=== PATIENT | female | born 1940 | race Caucasian/White ===

== ENCOUNTER 2019-01-21 12:12 | Inpatient (IN) ==
[2019-01-21 12:41] LABS: Basophils # (auto) 0.05 K/uL (0-0.2); Basophils % (auto) 0.6 %; Eosinophils # (auto) 0.31 K/uL (0-0.5); Eosinophils % (auto) 3.8 %; Hematocrit (blood only) 47.9 % (37-47); Hemoglobin 16.8 g/dL (12.0-16.0); Immature Granulocytes # (auto) 0.04 K/uL (0.00-0.02); Immature Granulocytes % (auto) 0.5 %; Lymphocytes # (auto) 2.28 K/uL (1.2-3.4); Lymphocytes % (auto) 27.7 %; Mean Corpuscular Hemoglobin 32.4 pg (25-34); Mean Corpuscular Hgb Conc 35.1 g/dL (32-36); Mean Corpuscular Volume 92.5 fL (80-100); Mean Platelet Volume 9.6 fL (7.4-10.4); Monocytes # (auto) 0.67 K/uL (0.11-0.59); Monocytes % (auto) 8.1 %; Neutrophils # (auto) 4.89 K/uL (1.4-6.5); Neutrophils % (auto) 59.3 %; Platelet Count 219 K/uL (130-400); RDW Coefficient of Variation 13.4 % (11.5-14.5); RDW Standard Deviation 45.2 fL (36.4-46.3); Red Blood Count 5.18 M/uL (4.2-5.4); White Blood Count 8.24 K/uL (4.8-10.8)
[2019-01-21] MEDS ORDERED: dilTIAZem HCl 5 MG/ML 5 ML VIAL IV STA (12:41)
[2019-01-21 12:50] LABS: Prothrombin Time 10.4 Seconds (9.0-12.0)
[2019-01-21 12:58] LABS: Alanine Aminotransferase 27 U/L (12-78); Albumin Level 4.1 gm/dl (3.4-5.0); Aspartate Aminotransferase 19 U/L (15-37); BUN Creatinine Ratio 19.6 (10-20); Blood Urea Nitrogen 18 mg/dl (7-18); Calcium 9.5 mg/dl (8.5-10.1); Carbon Dioxide 26 mmol/L (21-32); Chloride 108 mmol/L (98-107); Creatinine Clr Calc Pharmacy 52.2 ml/min; Est GFR (African American) 66.9; Est GFR (Non-African American) 57.7; Glucose 106 mg/dl (70-99); Magnesium 2.1 mg/dl (1.8-2.4); Potassium 3.7 mmol/L (3.5-5.1); Sodium 142 mmol/L (136-145)
[2019-01-21] MEDS: dilTIAZem HCL 125 MG in DEXTROSE 5% 100 ML IV SCH ×2 (13:05→23:38)
[2019-01-21 13:09] LABS: Albumin Globulin Ratio 1.1 (0.9-2); Alkaline Phosphatase 93 U/L (45-117); Bilirubin,Total 0.6 mg/dl (0.2-1); Globulin 3.7 gm/dl (2.5-4.0); Total Protein 7.8 gm/dl (6.4-8.2); Troponin I < 0.015 ng/ml (0-0.045)
--- NOTE | 2019-01-21 13:28 | XRay Report ---
XR chest 1V portable CLINICAL HISTORY: Fall. Atrial fibrillation. COMPARISON STUDY: No previous studies for comparison. FINDINGS: Lung volumes are normal. Lungs are clear. There is no pneumothorax or pleural effusion. The heart is mildly enlarged Mediastinal contours are normal. There is no evidence for pulmonary edema. Right axillary surgical clips are present. IMPRESSION: No acute cardiopulmonary findings. Electronically signed by: Alexander Helm M.D. 01/21/2019 1:27 PM
--- NOTE | 2019-01-21 14:12 | CT Scan Report ---
CT head/brain wo con CLINICAL HISTORY: 78 years-old Female with fall. Acute head injury status post fall TECHNIQUE: Multiple axial CT images of the head were obtained without contrast. A dose lowering tech nique was utilized adhering to the principles of ALARA. CT DOSE: 537.48 mGy.cm COMPARISON: None. FINDINGS: No acute intracranial hemorrhage, midline shift, intracranial mass, hydrocephalus, territorial ischem ia or abnormal extra-axial collection. Age-related involutional changes. Cerebral vascular calcificat ions are noted. Mild patchy white matter hypodensities suggest chronic microvascular ischemic disease . The calvarium is intact. Polypoid mucosal thickening of the nasal turbinates, maxillary sinuses and left sphenoid sinus with mild to moderate mucosal thickening of the ethmoid air cells. Mastoid air ce lls are clear. Prior bilateral cataract repair. IMPRESSION: No acute intracranial abnormality or calvarial fracture. The above report was generated using voice recognition software. It may contain grammatical, syntax o r spelling errors. Electronically signed by: Chintan Manriquez M.D. 01/21/2019 2:11 PM
[2019-01-21] MEDS ORDERED: Heparin IV Standard *NO* Bolus IV ONE (15:41)
--- NOTE | 2019-01-21 15:41 | History & Physical Report ---
Date of Service January 21, 2019 Assessment & Plan (1) New onset atrial fibrillation: PCP visit last week was not noted for irregular HR Asx from this Trop neg x1, serials pending ECHO pending Dilt drip, can likely convert to PO if well controlled CHADS-VASC score is 3. Pt would be an excellent candidate for xarelto or eliquis if ECHO does not reveal valvular issue, will not start coumadin at this time Heparin drip, no bolus for now given ongoing elevated HR Overnight pulse ox to evaluate for AFSHIN CXR neg for acute (2) Sinusitis: Outpt tx To finish abx tomorrow (3) Altered behavior: CT head neg for acute MRI pending Pt is now back to usual per daughter (4) DVT prophylaxis: SCDs, Heparin for DVT proph History of Present Illness Primary Care Provider: Chris Puente MD 78 y/o F who was brought to the ED s/p fall. Pt was at work when this occurred. Pt has a desk set up with multiple areas that she rolls around between in her chair. She was attempting to sit down when she missed the chair as it was further away from her than she thought. She denies any LOC prior to the fall. She did hit her head. She remembers hearing the woman who works across from her asking if she fell. She states she was having a usual day prior to this. Pt denies fever, SOB, chest pain, abd pain, n/v/c/d, LE pain or swelling. No palpitations. No headache, vision changes. She does note a slight ache in the muscles in the back of her head s/p fall. She ate breakfast without issue. Pt saw her PCP last week for lynch on her fingers and possible sinus issue. She was dx with sinusitis and started on an abx. She states her VS were checked and nothing was noted as abn other than a slightly high BP that pt states is c/w her usual BP in the office. Daughter states that when pt called her from work she seemed very hyper and her speech was different than usual. No slurring, just very high pitched and her speech pattern seemed unusual. She was giggling in a way that her daughter states she has never heard. Pt states that this was due to her being very "humilated" because all of her co-workers were standing around her and the fashion supervisor came with a bed to take her out of the office. She states she was very embarrassed and worried about coming to the hospital. Daughter states that she seems more herself now. Pt states when she gets home from work she has dinner and is very bored, so she frequently falls asleep in a chair. Then she wakes around 3a and goes to bed. Pt works in [place] for a [employer] and sits at a computer all day. She wears polarizing sunglasses because otherwise her eyes become very screen fatigued. She does not wake up gasping for air. Daughter states that she does not live with pt, but has noted to her to snore when they are sleeping in close proximity. Home Medications Home Medications Medication Instructions Recorded Confirmed Type cefuroxime axetil 500 mg PO BID 01/21/19 01/21/19 History Past Med/Surg History Medical History No significant past medical history Surgical History History of cataract surgery Family History Father Irregular heart beat Mother Stroke Other Family history non-contributory Social History Preferred Language: Kyrgyz marital status: Current Living Situation: Alone current occupational status: retired Feels Safe at Home: Yes Smoking Status: Never smoker Hx Alcohol Use: Yes (a beer 2 times a week) Hx Substance Use: No Review of Systems Review of Systems: Pertinent positives and negatives reviewed in HPI--all others negative Physical Exam Constitutional: WD/WN, vitals as above Eyes: normal visual ponce by confrontation and + anicteric sclerae Neck: normal visual inspection and trachea midline Respiratory: normal respiratory effort, lungs clear to auscultation Cardiovascular: Rate/Rhythm: + irregularly irregular Gastrointestinal (Abdomen): Inspection/Auscultation: abdomen not distended Percussion/Palpation: abdomen soft; abdomen nontender Musculoskeletal: Head/Neck/Chest: normocephalic and head atraumatic negative for edema, peripheral pulses intact Skin: no rashes, warm and dry Neurologic: awake; not confused Speech / Cognition: normal speech Psychiatric: A+Ox3, euthymic affect Results & Data Vital Signs (Past 12 Hours) Vital Signs Temp Pulse Resp BP Pulse Ox 01/21/19 14:11 105 H 20 148/94 H 97 01/21/19 13:30 91 H 23 151/98 H 95 01/21/19 13:15 121 H 27 H 142/88 H 95 01/21/19 12:24 36.8 C 123 H 16 161/84 H 96 01/21/19 12:19 115 H 20 161/84 H 97 Diagnostic Findings CXR: neg for acute CT head: neg for acute ECG Additional Comments: Afib RVR Code Status & VTE Plan Code Status Full cardiac code. Declines intubation at any time. Daughter is present and agrees. VTE Prophylaxis Plan VTE Prophylaxis will be ordered: Yes PG Care Time/CCT Total # of Minutes Spent Total Time Spent with Patient: Total time spent is greater than 50% in coordination of care (as documented) at patient's floor/unit and/or counseling patient:
[2019-01-21] MEDS: HEPARIN SODIUM/DEXTROSE 25,000 UNITS/500 ML BAG IV SCH (17:55)
--- NOTE | 2019-01-21 18:17 | Emergency Department Note ---
Entered by Dajuan Ortega acting as a scribe for Tato Tobar M.D. History of Present Illness General Chief complaint: Cardiac Assessment Source: patient History of Present Illness Provider complaint: Syncope Onset (ago): hour(s) (Just prior to arrival) Location: head Pain Consistency: + other (Episodic) Relieved By: + none Exacerbated By: + none Associated symptoms: + cough; no chest pain, no headaches, no nausea/vomiting and no shortness of breath The patient is a 78 year old female who presents to the Emergency Room after having a syncopal episode while at work earlier today just prior to arrival. The patient states she slid off of her desk chair and hit the posterior aspect of her head on her desk. The patient states she did not feel dizzy before the episode and does not remember syncopizing. The patient's daughter states that the patient is acting and sounding different than she normally does, but the patient notes it is because she is nervous and embarrassed. The patient adds that she has a sinus infection and cough that is being treated with an antibiotic. She states she has 2 days left of the antibiotic and has not taken any steroids. The patient denies any headache, chest pain, shortness of breath, or extremity pain as well as any history of atrial fibrillation. Home Medications Home Medications Medication Instructions Recorded Confirmed Type cefuroxime axetil 500 mg PO BID 01/21/19 01/21/19 History Past Med/Surg History Medical History No significant past medical history Surgical History History of cataract surgery Family History Father Irregular heart beat Mother Stroke Other Family history non-contributory Social History Preferred Language: French Communication Ability: Effective Beliefs That Will Affect Care: None marital status: Current Living Situation: Alone current occupational status: retired Feels Safe at Home: Yes Smoking Status: Former smoker Hx Alcohol Use: Yes (Occasional) Hx Substance Use: No Review of Systems See HPI for pertinent positives & negatives. and A total of 10 systems reviewed and were otherwise negative Physical Exam Vital Signs Vital Signs - 24 hr 01/21/19 12:19 01/21/19 12:24 01/21/19 13:15 Temperature 36.8 C Temperature Source Oral Sepsis Recent Fever Within 48 Hours No Sepsis New/Unexplained Change in Mental Status No Sepsis Action Taken by Nursing No Action Required Pulse Rate 115 H 123 H 121 H Pulse Rate from SpO2 Sensor 113 H 106 H Pulse Rhythm Irregular Pulse Strength Normal Respiratory Rate 20 16 27 H Respiratory Effort / Characteristics Non-Labored Spontaneous Respiratory Depth Normal Respiratory Pattern Regular Blood Pressure 161/84 H 161/84 H 142/88 H Blood Pressure Mean 109 109 106 Blood Pressure Position Sitting Pulse Oximetry 97 96 95 Oxygen Delivery Method Room Air 01/21/19 13:30 01/21/19 14:11 Temperature Temperature Source Sepsis Recent Fever Within 48 Hours Sepsis New/Unexplained Change in Mental Status Sepsis Action Taken by Nursing Pulse Rate 91 H 105 H Pulse Rate from SpO2 Sensor 104 H 105 H Pulse Rhythm Pulse Strength Respiratory Rate 23 20 Respiratory Effort / Characteristics Respiratory Depth Respiratory Pattern Blood Pressure 151/98 H 148/94 H Blood Pressure Mean 115 112 Blood Pressure Position Pulse Oximetry 95 97 Oxygen Delivery Method GENERAL: Awake, alert, well-appearing, in no distress HENT: Normocephalic, atraumatic. Oropharynx unremarkable. EYES: Normal conjunctiva. Sclera non-icteric. PERRL. NECK: Supple. No nuchal rigidity. RESPIRATORY: Clear to auscultation. No wheezes. Normal respiratory effort. CARDIAC: Tachycardic rate. Irregularly irregular rhythm. Extremities warm and well perfused. GI: Soft, non-distended. No tenderness to palpation. No rebound or guarding. No masses. RECTAL: Deferred. MUSCULOSKELETAL: Atraumatic. Chest examination reveals no tenderness. LOWER EXTREMITIES: Calves are equal size bilaterally and non-tender. No edema NEURO: Normal sensorium. No sensory or motor deficits noted. No facial droop. No slurred speech. GCS 15. Slightly tangential and giddy. SKIN: Warm and dry. No rash or jaundice noted. Course 1228: Past medical records reviewed. The patient was evaluated in room B04B, and a complete history and physical examination were performed. 1420: I reevaluated the patient and updated her on results. We discussed the treatment plan and she is agreeable to stay for further evaluation. 1441: I spoke to Dr. Menendez [facility] Hospitalist about the patient's case. She is going to accept the patient for further evaluation. Consultations Consultation #1: I spoke to Dr. Shon Crawley [facility] Hospitalist about the patient's case. She is going to accept the patient for further evaluation. Time: 14:41 Administered Medications Diltiazem HCl 125 mg/ Dextrose 125 mls @ 5 mls/hr IV .Q24H BECKIE; Protocol Stop: 02/20/19 12:44 Last Titration: 01/21/19 17:57 Dose: 5 mg/hr, 5 mls/hr Documented by: [id number] Cosigned by: [id number] Admin: 01/21/19 13:05 Dose: 5 mg/hr, 5 mls/hr Documented by: [id number] Cosigned by: [id number] Heparin Sodium/Dextrose (Heparin Sodium/Dextrose) 25,000 units in 500 mls @ 24 mls/hr IV .[id number] BECKIE; Protocol Stop: 02/20/19 15:44 Last Admin: 01/21/19 17:55 Dose: 1,200 units/hr, 24 mls/hr Documented by: [id number] Cosigned by: [id number] Discontinued Medications Diltiazem HCl (Cardizem) 10 mg IV NOW STA Stop: 01/21/19 12:42 Last Admin: 01/21/19 13:05 Dose: 10 mg Documented by: [id number] Cosigned by: [id number] Heparin Sodium/Dextrose () 1 ea IV ONE ONE; Protocol Stop: 01/21/19 15:42 Last Admin: 01/21/19 17:55 Dose: 1 ea Documented by: [id number] Medical Decision Making Differential Diagnosis Differential diagnosis includes etiologies such as vasovagal event, infection, hypoglycemia, electrolyte abnormalities, cardiac sources, intracerebral event, toxicologic, neurologic, as well as others were entertained. Medical Records Attestation: I reviewed the patient's medical records. Home Medications Current Medication List: was personally reviewed by me Laboratory Data Attestation: I reviewed the patient's lab results. Result diagrams: 01/21/19 12:06 01/21/19 12:06 Lab Results 01/21/19 01/21/19 01/21/19 Range/Units 12:06 12:06 12:06 WBC 8.24 (4.8-10.8) K/uL RBC 5.18 (4.2-5.4) M/uL Hgb 16.8 H (12.0-16.0) g/dL Hct 47.9 H (37-47) % MCV 92.5 (80-100) fL MCH 32.4 (25-34) pg MCHC 35.1 (32-36) g/dL RDW Std Deviation 45.2 (36.4-46.3) fL RDW Coeff of Kaylee 13.4 (11.5-14.5) % Plt Count 219 (130-400) K/uL MPV 9.6 (7.4-10.4) fL Immature Gran % (Auto) 0.5 % Neut % (Auto) 59.3 % Lymph % (Auto) 27.7 % Lyon % (Auto) 8.1 % Eos % (Auto) 3.8 % Baso % (Auto) 0.6 % Immature Gran # (Auto) 0.04 H (0.00-0.02) K/uL Neut # (Auto) 4.89 (1.4-6.5) K/uL Lymph # (Auto) 2.28 (1.2-3.4) K/uL Lyon # (Auto) 0.67 H (0.11-0.59) K/uL Eos # (Auto) 0.31 (0-0.5) K/uL Baso # (Auto) 0.05 (0-0.2) K/uL PT 10.4 (9.0-12.0) Seconds INR 1.0 (0.9-1.1) Sodium 142 (136-145) mmol/L Potassium 3.7 (3.5-5.1) mmol/L Chloride 108 H (98-107) mmol/L Carbon Dioxide 26 (21-32) mmol/L Anion Gap 7.0 (3-11) BUN 18 (7-18) mg/dl Creatinine 0.94 (0.6-1.2) mg/dl Est Cr Clr Drug Dosing 52.2 ml/min Est GFR ( Amer) 66.9 Est GFR (Non-Af Amer) 57.7 BUN/Creatinine Ratio 19.6 (10-20) Glucose 106 H (70-99) mg/dl Calcium 9.5 (8.5-10.1) mg/dl Magnesium 2.1 (1.8-2.4) mg/dl Total Bilirubin 0.6 (0.2-1) mg/dl AST 19 (15-37) U/L ALT 27 (12-78) U/L Alkaline Phosphatase 93 (45-117) U/L Troponin I < 0.015 (0-0.045) ng/ml Total Protein 7.8 (6.4-8.2) gm/dl Albumin 4.1 (3.4-5.0) gm/dl Globulin 3.7 (2.5-4.0) gm/dl Albumin/Globulin Ratio 1.1 (0.9-2) TSH 1.800 (0.300-4.500) uIu/ml Imaging Data Radiologist's Impression: Radiology results as stated below per my review and the radiologist's interpretation: XR chest 1V portable CLINICAL HISTORY: Fall. Atrial fibrillation. COMPARISON STUDY: No previous studies for comparison. FINDINGS: Lung volumes are normal. Lungs are clear. There is no pneumothorax or pleural effusion. The heart is mildly enlarged Mediastinal contours are normal. There is no evidence for pulmonary edema. Right axillary surgical clips are present. IMPRESSION: No acute cardiopulmonary findings. Electronically signed by: Alexander Helm M.D. 01/21/2019 1:[address] head/brain wo con CLINICAL HISTORY: 78 years-old Female with fall. Acute head injury status post fall TECHNIQUE: Multiple axial CT images of the head were obtained without contrast. A dose lowering technique was utilized adhering to the principles of ALARA. CT DOSE: 537.48 mGy.cm COMPARISON: None. FINDINGS: No acute intracranial hemorrhage, midline shift, intracranial mass, hydrocephalus, territorial ischemia or abnormal extra-axial collection. Age- related involutional changes. Cerebral vascular calcifications are noted. Mild patchy white matter hypodensities suggest chronic microvascular ischemic disease. The calvarium is intact. Polypoid mucosal thickening of the nasal turbinates, maxillary sinuses and left sphenoid sinus with mild to moderate mucosal thickening of the ethmoid air cells. Mastoid air cells are clear. Prior bilatera l cataract repair. IMPRESSION: No acute intracranial abnormality or calvarial fracture. The above report was generated using voice recognition software. It may contain grammatical, syntax or spelling errors. Electronically signed by: Chintan Manriquez M.D. 01/21/2019 2:11 PM ECG Data Attestation: I personally reviewed and interpreted this ECG as follows: Indication: syncope Rate (beats per minute): 125 Rhythm: atrial fibrillation (with RVR) Findings: + other (Inferior T wave changes ); no ST depression and no ST elevation Blood Pressure Blood Pressure Findings: Elevated blood pressure Blood Pressure Disposition: further management by hospitalist Head Trauma GCS Score: 15 MDM Narrative Patient is a 78-year-old female presenting to the emergency department today with a complaint of some palpitations. Patient without significant medical history. Presents today after a fall at work. States that she just lost her balance and fell backwards striking her head on a table. Denies significant LO C. Patient presents with daughter via ambulance. Patient is a little bit giddy and according to daughter seems a little bit off today. Noted to be in atrial fibrillation. No significant history. Patient is finishing a course of cefuroxime for sinus infection but not on stimulants or steroids recently. Given a small amount of diltiazem and started on diltiazem drip for rate control. Given the fall a CT of the head was obtained. There is no focal neurological deficits on exam noted. No significant evidence of trauma to the head. Basic labs and EKG were complete as well to look for other promoting factors for the patient's new onset atrial fibrillation. Labs are unremarkable. Chest x-ray unremarkable without evidence of fluid overload. No evidence of thyroid dysfunction. Electrolytes without significant abnormality. CT the head is unremarkable here. No troponin detectable. Still requiring diltiazem drip and requires transition to oral rate control medication likely anticoagulation. Discussed with daughter still seems a bit off and given this discussed with the hospitalist for admission for further cardiac evaluation given new onset A. fib and possible further evaluation for occult stroke given that she seems just a little bit off. Impression & Plan New onset atrial fibrillation, Atrial fibrillation with RVR Critical Care Time Critical Care Time: Yes Total Critical Care Time: 46 I have personally spent greater than 46 minutes of critical care time in the direct management of this patient. This includes bedside care, interpretation of diagnostic studies, and testing, discussion with consultants, patient, and family members, and other required patient management activities. This 46 minutes is in excess of all separately billable procedures. Discharge Plan Visit Data *Final* Discharge Date/Time: 01/21/19 16:32 Chief Complaint: Cardiac Assessment ED Provider: Tato Tobar Discharge Problem: New onset atrial fibrillation, Atrial fibrillation with RVR Patient Disposition: Admitted As Inpatient Discharge Instructions Interventions: ED Discharge Assessment Last Done: 01/21/19 16:32 The scribe's documentation has been prepared under my direction and personally reviewed by me in its entirety. I confirm that the note above accurately reflects all work, treatment, procedures, and medical decision making performed by me.
[2019-01-21] MEDS ORDERED: ACETAMINOPHEN 325 MG TAB PO PRN (18:38)
[2019-01-21] MEDS ORDERED: MAGNESIUM HYDROXIDE SUSP 30 ML UDC PO PRN (18:38)
[2019-01-21] MEDS ORDERED: ONDANSETRON INJ 2 MG/ML 2 ML VIAL IV PRN (18:38)
[2019-01-21] MEDS ORDERED: INFLUENZA ADMINISTRATION CHARGE ONE (19:00)
[2019-01-21] MEDS ORDERED: INFLUENZA VIRUS QUAD VACCINE 0.5 ML SYR IM ONE (19:00)
[2019-01-21 19:17] LABS: Partial Thromboplastin Ratio 1.1; Partial Thromboplastin Time 29.7 Seconds (21.0-31.0)
[2019-01-21] MEDS ORDERED: HEPARIN IV BOLUS 5,000 UNITS in SYRINGE 0 ML IV ONE (19:47)
[2019-01-21 20:02] LABS: Lyme Ab IgG w/WB Rflx Negative (Negative); Lyme Ab IgM w/WB Rflx Negative (Negative)
[2019-01-21] MEDS: cefUROXime axetil 500 MG TAB PO SCH (20:32)
--- NOTE | 2019-01-21 22:55 | Magnetic Resonance Report ---
MR brain wo con CLINICAL HISTORY: 78 years-old Female presenting with altered mental status, head injury. TECHNIQUE: Multisequence, multiplanar MR imaging of the brain was performed without the use of intrav enous contrast. IV contrast: None. COMPARISON: Noncontrast CT head performed earlier the same day. FINDINGS: Localizer images: Unremarkable. Bone marrow signal intensity within the calvarium within normal limits. Normal midline sagittal structures. Proportional ventricular and sulcal prominence, likely age-relate d parenchymal volume loss. No mass effect or midline shift. Restricted diffusion in the right parieta l occipital region affecting the cortex and subcortical white matter. No associated hemorrhage. Periv entricular and subcortical white matter T2/FLAIR hyperintensity, nonspecific but likely indicative of chronic small vessel ischemic change. No extra-axial fluid collection. T2 skull base flow voids preserved. Mucosal thickening in paranasal sinuses. IMPRESSION: 1. 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 No hemorrhage. 2. Chronic small vessel ischemic change of the periventricular and subcortical white matter. The report will be called/faxed according to standard departmental protocol. Electronically signed by: Reagan Munoz M.D. 01/21/2019 10:54 PM
[2019-01-21] MEDS ORDERED: PHARMACIST DISCHARGE MED REC CONSULT PRN (23:30)
[2019-01-22 03:16] LABS: Chol HDL Ratio 4; Cholesterol 183 mg/dl (0-200); HDL Cholesterol 43 mg/dl; LDL Cholesterol Calculated 127 mg/dl; Triglycerides 64 mg/dl (0-150); Troponin I < 0.015 ng/ml (0-0.045); VLDL Cholesterol 13 mg/dl
[2019-01-22 03:21] LABS: Partial Thromboplastin Ratio 3.2
[2019-01-22 03:24] LABS: Partial Thromboplastin Time 87.2 Seconds (21.0-31.0)
[2019-01-22 06:22] LABS: Estimated Average Glucose 126 mg/dl
--- NOTE | 2019-01-22 08:19 | Medical Student H&P ---
Date of Service January 22, 2019 Assessment & Plan Treatment Plan Patient is a 78-year-old generally healthy female. She suffered a fall and behavioral changes at work that were revealed to be secondary to an ischemic event in the right parieto-occipital cortex. She was also found to have atrial fibrillation upon arrival to the hospital which is likely the cause of the stroke. Patient's atrial fibrillation will be managed by internal medicine. She is currently on diltiazem to control her rate as well as heparin to prevent DVT. Internal will start her on a NOAC pending the results of the echocardiogram. Patient is not currently on an aspirin regimen and therefore should begin taking 81 mg aspirin QD to prevent future CVA. She has had consistently high blood pressure. Blood pressure should be controlled but kept above a MAP of 100 with an anti-hypertensive. Patient should follow up with PCP for pre-diabetes to manage this risk factor. Recommend diet and exercise. History of Present Illness Chief Complaint: Fall at work Primary Care Provider: Chris Puente MD Juany is a 78-year-old generally healthy female. Yesterday at work she states that she went to sit down in her chair but did not look behind her first which resulted in her falling on her bottom. She said that the force of the fall caused her head and neck to swing backward into another desk. She states that she did not lose consciousness as she remembers the fall and then her co-worker immediately asking if she hit her head. She does not endorse any changes in vision, weakness, lightheadedness, or change in speech at this time. However, she states that all day yesterday and continuing into today she feels like "she might get a heachache/neckache" and states that there is a vague sensation on her forehead and through her neck that she cannot define. After the fall her daughter and EMS workers reported that she was acting abnormally with frequent laughing and had a high-pitched voice but patient states that she is known to do 'weird things' and was simply embarrassed about her co-workers seeing her fall and the need to go to the hospital. Upon arrival at the hospital, the patient was found to have atrial fibrillation with rapid ventricular rhythm. Though her blood pressure was found to be elevated at an appointment with her PCP for a URI last week, she was in sinus rhythm at that time. She does not endorse any chest pain, palpitations, or the sensation of a racing heart in the last week. Today she states that she is resting comfortably and does not have any pain, changes in vision, difficulty speaking or swallowing, or weakness. Her daughter states that she is "100% back to normal" in terms of her personality, mental status, and behavior. Allergies Allergy/AdvReac Type Severity Reaction Status Date / Time No Known Allergies Allergy Verified 01/21/19 19:52 Home Medications Home Medications Medication Instructions Recorded Confirmed Type cefuroxime axetil 500 mg PO BID 01/21/19 01/21/19 History Past Med/Surg History Medical History No significant past medical history Surgical History History of cataract surgery Family History Father Irregular heart beat Mother Stroke Other Family history non-contributory Social History Preferred Language: [place] Communication Ability: Effective Beliefs That Will Affect Care: None marital status: Current Living Situation: Alone current occupational status: retired Feels Safe at Home: Yes Smoking Status: Former smoker Hx Alcohol Use: Yes (Occasional) Hx Substance Use: No Review of Systems All systems reviewed & are unremarkable except as noted in HPI & below no fever, no weakness and no anorexia as per Subjective / HPI as per Subjective / HPI no problem reported as per Subjective / HPI no nausea and no vomiting no problem reported + neck pain no problem reported as per Subjective / HPI as per Subjective / HPI no problem reported + easy bruising; no easy bleeding no problem reported Physical Exam Physical Exam: Cardiac: Tachycardic with irregularly irregular rhythm. No rubs, murmurs, or gallops. Neuro: Patient is alert and oriented x3. CN 2-12 intact. PERRLA. Vision 20/70 in both eyes. Strength +5 in upper and lower extremities and displays full range of motion. Patient's sensation of light and sharp touch intact in the upper and lower extremities. Bicep, tricep, brachioradialis, and patellar reflexes +2; achilles reflexes +1 bilaterally. Proprioception intact. Normal babinski bilaterally. Patient had difficulty putting left pointer finger to nose with eyes closed but ability intact on the right. Results & Data Vital Signs (Past 12 Hours) Vital Signs Temp Pulse Pulse Pulse Resp BP Pulse Ox 01/22/19 04:00 36.9 C 90 20 138/79 95 01/22/19 00:33 101 H 01/22/19 00:00 92 H 01/21/19 23:26 104 H 01/21/19 23:16 36.6 C 92 H 18 138/87 95 Pulse Ox 01/22/19 04:00 01/22/19 00:33 94 01/22/19 00:00 01/21/19 23:26 96 01/21/19 23:16 Glucose: 106 HbA1c: 6.0 T Total Cholesterol: 183 HDL: 43 LDL: 127 VLDL: 13 Code Status & VTE Plan VTE Prophylaxis Plan VTE Prophylaxis will be ordered: Yes
[2019-01-22 09:13] LABS: Partial Thromboplastin Ratio 2.5
[2019-01-22 09:15] LABS: Partial Thromboplastin Time 68.7 Seconds (21.0-31.0)
[2019-01-22] MEDS: cefUROXime axetil 500 MG TAB PO SCH ×2 (09:22→21:33)
[2019-01-22] MEDS: ASPIRIN 81 MG ECTAB PO SCH (09:23)
[2019-01-22] MEDS: ATORVASTATIN 40 MG TAB PO SCH (09:23)
[2019-01-22] MEDS ORDERED: dilTIAZem HCL 30 MG TAB PO ONE (09:40)
--- NOTE | 2019-01-22 11:01 | Neurology Consultation ---
Date of Consultation January 22, 2019 Assessment & Plan (1) Acute CVA (cerebrovascular accident): (2) Head trauma: (3) Altered behavior: (4) New onset atrial fibrillation: Patient was admitted yesterday after a fall with some minor closed head trauma and possible concussion as noted by some behavioral alterations. There really were no other significant symptoms and the patient is back to baseline this morning with no focal neurologic findings, meningeal signs, or encephalopathy. She certainly does not have any speech or behavioral issues this morning. The patient was noted to be in atrial flutter with a rapid ventricular rate. It is unknown how long she has been in this but a week ago at her primary care physician's office her rhythm was described as normal. She has had some hypertension with has not been treated recently and her blood pressure was elevated on admission. It remains elevated at 150 6/95 this morning. MRI of the brain (obtain because of her fall and abnormal behavior) showed a small right posterior parietal/occipital stroke in a wedge like fashion. This was reviewed and I do not believe it represents contusion. Certainly, the patient had no significant head trauma which would create a contusion or skull fracture. Patient has no discernible bruising or scalp lesions. The etiology of the stroke is not readily apparent, but could be embolic from the heart in lieu of the atrial flutter. The timing of this stroke is not readily apparent either but is likely within a week. I cannot entirely exclude thrombotic stroke from hypertensive small vessel ischemic disease. The patient does not have any symptoms that would be suggestive of concussion this morning. Recommendations: 1. Echocardiogram is pending. 2. Consider CT angiography of the head and neck to further evaluate BRUSH HAND vasculature and stroke risk. 3. Cardiology consult to evaluate abnormal cardiac rhythm and their assessment for anticoagulant. 4. From a neurologic standpoint, if we are considering this stroke as embolic and with her new onset heart rhythm issue she would need an oral anticoagulant. In addition, because of her chronic small vessel ischemic disease and history of hypertension, she should be on 81 mg aspirin tablet daily. 5. Patient has a mildly elevated hemoglobin A1c at 6.0. Glucose could be addressed to bring this down under 6. 6. Control blood pressure, aiming for a mean arterial blood pressure of approximately 100 (or 95-100) 7. Given her lipid parameters and medical problems, initiating a statin would be reasonable. She would not necessarily have to be high dose statin candidate however. Overall, I spent a total of 90 minutes with this case including review of records, review of MRI films, direct evaluation the patient at bedside, discussion of the case with the patient at bedside, her daughter at bedside, and Dr. Brower including differential diagnosis and treatment options. History of Present Illness Reason for Consultation: Is a 78-year-old, who assessed to see the request of Dr. Gtz, for neurologic consultation regarding stroke. Requesting Physician: Dr. Gtz Attending Physician: Estela Brower MD History of Present Illness Patient has no significant medical history although recently, she has been having elevated blood pressure readings without specific treatment. She last saw her PCP on January 12 and her blood pressure was elevated at 172/98. She was not known to be in any cardiac dysrhythmia at that time. Patient was at work as usual when around 11 30 she sat down to sit in a rolling chair but the chair moved and she missed landing on her buttocks and then her head went back some and went into the edge of the desk. She had no loss of consciousness and was not stuck under confused. The patient herself felt that she was normal with no headache, neck pain, dizziness, or other symptoms. Apparently [employer] workers felt that she was somewhat confused or acting abnormally with her behavior. She called her daughter at 11:45 a.m. and her daughter, who is present at bedside today, felt that the patient was not acting herself. Her voice was high pitched and inappropriately laughing. She was acting a little bit erratically and flighty. She was brought to the emergency room. Patient arrived January 21 at 1219 in the emergency room with temperature of 36.8, pulse of 115, in atrial fibrillation, with a respiratory rate of 20, blood pressure 161/84, and O2 saturation 97%. She has been in atrial fibrillation or atrial flutter since admission. This morning her rhythm looks more like chronic atrial flutter. She seem to be more herself with her speech and behavior after about 30 minutes or so in the emergency room. Her NIH stroke scale was 0. CBC was unremarkable although it showed a mildly elevated hemoglobin and hematocrit. Chem profile was unremarkable and TSH was 1.8. Lyme antibody titers were negative. Hemoglobin A1c was 6.0. Total cholesterol was [address] scan of the head was unremarkable. MRI of the brain showed a small wedge like right posterior parietal/occipital stroke of an acute nature. There was mild old small vessel ischemic disease in general. There was minimal atrophy in general. This morning, the patient feels back to baseline although she has a little bit of neck stiffness posteriorly. Patient's daughter feels the patient is back to baseline as well with her speech and behavior. Allergies Allergy/AdvReac Type Severity Reaction Status Date / Time No Known Allergies Allergy Verified 01/21/19 19:52 Home Medications Home Medications Medication Instructions Recorded Confirmed Type cefuroxime axetil 500 mg PO BID 01/21/19 01/21/19 History Patient History Medical History Hx of breast cancer No significant past medical history Surgical History S/P mastectomy History of cataract surgery Family History Father , in his 70s of liver cancer. Irregular heart beat Liver cancer Mother , age 69 with a stroke. 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 [employer] Feels Safe at Home: Yes Smoking Status: Former smoker Number of Years Since Quit: 40 ; Hx Alcohol Use: Yes (Occasional) Alcohol type: beer Alcohol Intake Frequency Comment: 5-6 beers per week Hx Substance Use: No Review of Systems Constitutional: no fever, no fatigue and no weakness Eyes: no diplopia, no eye pain and no worsening vision Ear, Nose, Mouth, Throat: no ear pain, no tinnitus, no hearing loss, no dizziness, no snoring, no hoarseness and no dysphagia Respiratory: no cough and no dyspnea Cardiovascular: no chest pain, no palpitations and no lightheadedness Gastrointestinal: no abdominal pain, no nausea and no vomiting Genitourinary: no dysuria, no urinary frequency and no urinary incontinence Musculoskeletal: + neck pain; no back pain, no radicular pain, no joint pain and no myalgia Integumentary: no rash and no lesions Neurologic: no gait abnormality, no localized weakness, no generalized weakness, no tingling, no numbness, no tremor(s), no abnormal movements, no headache(s), no abnormal speech, no confusion and no memory loss Psychiatric: no depression, no irritability, no anxiety, no difficulty concentrating, no confusion and no hallucinations Endocrine: no fatigue and no flushing Hematologic / Lymphatic: no easy bleeding and no easy bruising Allergy / Immunological: no urticaria and no problem reported Physical Exam Physical Exam: The patient is right-handed. The patient is awake, alert, and attentive. Speech is normal without any aphasia or dysarthria. She can name objects, repeat phrases, and has normal spontaneous speech. Mentation and thought processes are intact, with orientation to person, place and time, and normal fund of knowledge. Attention and concentration are normal. Mood and affect are normal and appropriate. General appearance and grooming are normal. Short and long-term memory are intact to conversation. Her voice is not high pitched and she does not have inappropriate laughing this morning. The discs are sharp with positive venous pulsations bilaterally. There are no exudates, hemorrhages, or blood vessel changes seen. Pupils are 4 mm bilaterally and reactive to light. Extraocular eye muscles are intact without nystagmus. Visual acuity and visual ponce seem normal grossly to confrontation. There are no deficits to sensation in the face in all 3 distributions of the fifth cranial nerve bilaterally. Corneal reflexes are positive bilaterally. Facial strength and symmetry was normal bilaterally. Hearing seems normal to whisper and finger rub bilaterally. Palate moves well without asymmetry. There is normal sternocleidomastoid and trapezius (shoulder shrug) strength bilaterally. Tongue is midline with good strength bilaterally. Neck has a full range of motion without discomfort. There are no cervical bruits bilaterally. There are no cranial or ocular bruits. Heart is without murmur. There is a regular rhythm and rate. Cervical, thoracic, and lumbar spine are nontender to palpation. Gait was not tested but stance sitting up in bed is normal. With outstretched arms there is no drift. There are no resting, postural, or action tremors. There is no ataxia with finger to nose testing. There is good facility in the hands. No other abnormal involuntary movements are noted. Motor strength is 5/5 diffusely in the arms bilaterally including deltoids, biceps, triceps, brachioradialis, wrist flexors and extensors, auto damage appraiser, and intrinsic hand muscles. Motor strength is 5/5 diffusely in the legs bilaterally including hip flexors, quadriceps, hamstrings, gastrocnemius, tibialis anterior, tibialis posterior, and Peroneii muscles. Toe extensors are normal and there is good bulk in the extensor digitorum brevis muscles bilaterally. The limbs have good tone without rigidity or spasticity. There is no atrophy noted in the muscles. Muscle bulk is normal, there is no tenderness to palpation, no myotonia to percussion, and no fasciculations seen. Sensory examination is intact to touch and pin throughout all 4 limbs diffusely. Reflexes are 2/4 in the biceps, triceps, brachioradialis, quadriceps, and Achilles tendons bilaterally. There is no clonus bilaterally. Toes are downgoing with plantar stimulation bilaterally. Peripheral pulses are present and of normal quality distally in all 4 limbs. There is no peripheral edema noted in the limbs. Results & Data Vital Signs (Past 12 Hours) Vital Signs Temp Pulse Pulse Pulse Resp BP Pulse Ox 01/22/19 08:35 36.5 C 105 H 18 156/95 H 95 01/22/19 04:00 36.9 C 90 20 138/79 95 01/22/19 00:33 101 H 01/22/19 00:00 92 H 01/21/19 23:26 104 H 01/21/19 23:16 36.6 C 92 H 18 138/87 95 Pulse Ox 01/22/19 08:35 01/22/19 04:00 01/22/19 00:33 94 01/22/19 00:00 01/21/19 23:26 96 01/21/19 23:16 Diagnostic Findings MR brain wo con CLINICAL HISTORY: 78 years-old Female presenting with altered mental status, head injury. TECHNIQUE: Multisequence, multiplanar MR imaging of the brain was performed without the use of intravenous contrast. IV contrast: None. COMPARISON: Noncontrast CT head performed earlier the same day. FINDINGS: Localizer images: Unremarkable. Bone marrow signal intensity within the calvarium within normal limits. Normal midline sagittal structures. Proportional ventricular and sulcal prominence, likely age-related parenchymal volume loss. No mass effect or midline shift. Restricted diffusion in the right parietal occipital region affecting the cortex and subcortical white matter. No associated hemorrhage. Periventricular and subcortical white matter T2/FLAIR hyperintensity, nonspecific but likely indicative of chronic small vessel ischemic change. No extra-axial fluid collection. T2 skull base flow voids preserved. Mucosal thickening in paranasal sinuses. IMPRESSION: 1. 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 No hemorrhage. 2. Chronic small vessel ischemic change of the periventricular and subcortical white matter. The report will be called/faxed according to standard departmental protocol. Electronically signed by: Reagan Munoz M.D. 01/21/2019 10:54 PM PG Care Time/CCT Total # of Minutes Spent Total Time Spent with Patient: Total time spent is greater than 50% in coordination of care (as documented) at patient's floor/unit and/or counseling patient:
[2019-01-22] MEDS: HEPARIN SODIUM/DEXTROSE 25,000 UNITS/500 ML BAG IV SCH (11:12)
[2019-01-22] MEDS: dilTIAZem HCL 30 MG TAB PO SCH ×2 (13:43→21:32)
--- NOTE | 2019-01-22 14:28 | Family Medicine Progress Note ---
Date of Service January 22, 2019 Assessment & Plan (1) Acute CVA (cerebrovascular accident): Juany is a 78-year-old female with minimal past medical history who presented following a fall and was found to have new atrial flutter with RVR and a ischemic right parieto-occipital stroke on MRI. Acute right ischemic temporoparietal stroke No prior history of stroke or vascular disease New onset a flutter on admission, discussed below MRIbrain shows parietal right occipital stroke, small, and chronic small vessel ischemic change of the periventricular and subcortical white matter. Heparin GTT on admission. No valvular disease as noted below, Aspirin 81 mg for secondary prevention Atorvastatin 40 mg Neurology consulted -stroke likely thrombotic Neck angiography ordered -aspirin 81mg -will need full AC for a flutter as well. PT OT New onset atrial flutter with RVR No prior history of arrhythmia. Fibrillation and flutter waves noted overnight TTE shows minimal valvular disease, normal EF Cardizem drip overnight with good rate control Converted to Cardizem 30 mg 3 times daily with a 30 mg on-call dose if needed. Anticipate conversion to Cardizem 90 mg long-acting versus 120 mg long-acting If resistant to Cardizem, or RVR returns will place cardiac consult with possible referral to electrophysiology. - D/c heparin gtt; start rivaroxaban 15mg daily Prediabetes A1c of 6.0 on admission No prior history of anti-glycemics Could benefit from oral metformin, but would not add medications with an increased risk of hypoglycemia has given her age a liberalized A1c goal of 8.0 DVT prophylaxis: Rivaroxaban, transitioned from heparin Diet: Regular Disposition: Ongoing, anticipate home (2) Atrial flutter with rapid ventricular response: (3) DVT prophylaxis: Supervising Physician Co-Signing Physician Notes Resident Physician Supervision Note: I independently interviewed and examined the patient and verified the rosario history and physical, reviewed labs and image studies, discussed the case with the resident Dr. George and agree with the findings and care plan. Subjective Juany is seen at the bedside today. She is seen with her daughter present at bedside. She feels well, and per her and her daughter appear to be 100% back to her normal healthy baseline. Her daughter reports she was concerned because her speech was abnormal, high-pitched, with some unusual prosody and giggling but that has since resolved. Juany denies headache today. She denies chest pressure, chest pain, palpitations, focal weakness, generalized weakness today. She is hungry. She denies abdominal pain, nausea, vomiting, diarrhea, constipation. She has no numbness or tingling, and feels that her sensation is intact globally. She reports that she is otherwise healthy, and while she has a history of provoked blood clots and stroke and multiple family members, she has never had any heart disease, clotting disorders, or blood pressure problems. She has not had any similar episodes of difficulty speaking, sudden weakness, or transient weakness in the past. NIHSS of 0. Review of Systems Review of Systems: 10 point review of systems negative. Physical Exam Physical Exam: General: A&Ox3. NAD. Cooperative. HEENT: Atraumatic, normocephalic. Pulm: CTAB A&P. -wheezes, -rales, -rhonchi. Symmetrical chest rise. No increase work of breathing. No respiratory distress. Cardiac: Irregularly irregular, -mrg. Radial pulses intact and symmetrical. Abdominal: Nontender, nondistended, soft. BS present. Neurologic: Vision intact without field cuts. Hearing grossly intact. Extraocular movements intact without nystagmus. Pupils equal and reactive to light and accommodation. No facial asymmetry. Facial sensation intact. Facial strength intact without asymmetry. Tongue protrudes midline. Shoulder shrug normal 5/5. Finger flexion/extension/payroll assistant strength, wrist flexion/extension, elbow flexion/extension, shoulder flexion/extension/internal rotation/external rotation, hip flexion, knee flexion/extension, ankle plantar flexion/dorsiflexion with normal range of motion and 5/5 strength. Patellar DTR 2+ bilaterally. Sensation intact to soft touch bilaterally and without asymmetry in distal extremities. Results & Data Vital Signs (Past 12 Hours) Vital Signs Temp Pulse Resp BP Pulse Ox 01/22/19 12:02 37.2 C 107 H 18 140/65 96 01/22/19 08:35 36.5 C 105 H 18 156/95 H 95 01/22/19 04:00 36.9 C 90 20 138/79 95 PG Care Time/CCT Total # of Minutes Spent Total Time Spent with Patient: Total time spent is greater than 50% in coordination of care (as documented) at patient's floor/unit and/or counseling patient: Resident Activity Tracking Resident Involvement: Resident Care Provided Care Provided: Adult Hospital Medicine
[2019-01-22] MEDS ORDERED: OPTIRAY 320 125ml IV PRN (15:51)
[2019-01-22 16:06] LABS: Partial Thromboplastin Ratio 2.2
--- NOTE | 2019-01-22 16:13 | CT Scan Report ---
CT angio head w con CLINICAL HISTORY: 78 years-old Female presenting with stroke. TECHNIQUE: Multidetector CT angiography of the head was performed after the administration of intrave nous contrast. 3-D volumetric and/or maximum intensity projection (MIP) images were subsequently trice nstructed for review. IV contrast: 119 mL of Optiray 320. One or more dose lowering techniques were u sed consistent with the principles of ALARA (as low as reasonably achievable), including automatic ex posure control, mA or kV adjustment to individual patient size, and/or use of iterative reconstructio n. COMPARISON: Noncontrast CT head and brain MR performed the previous day. CT DOSE (mGy.cm): The estimated cumulative dose is 537.83 mGy.cm. 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 Anterior circulation: Atherosclerosis of the cavernous segments of the internal carotid arteries. Int racranial portions of the internal carotid arteries patent to the level of the termini. Anterior cere bral arteries patent. Middle cerebral arteries patent. Anterior communicating artery patent. Posterior circulation: Codominant vertebral arteries. Intradural portions of the vertebral arteries p atent. Posterior inferior cerebellar arteries patent. Basilar artery patent. Anterior inferior cerebe llar arteries poorly visualized. Superior cerebellar arteries patent. Posterior cerebral arteries pat ent. Posterior communicating arteries hypoplastic or aplastic. Dural venous sinuses: Patent. Other: Pain hypoattenuation in the right parieto-occipital region with hypovascularity corresponding with the acute infarct on MRI. Mild mucosal thickening in paranasal sinuses. Calvarium intact. IMPRESSION: 1. No evidence of aneurysm, focal vessel occlusion, or significant stenosis of the intracranial sunitha franky. 2. Redemonstration of the acute infarct in the right parieto-occipital region. Electronically signed by: Reagan Munoz M.D. 01/22/2019 4:12 PM
--- NOTE | 2019-01-22 16:18 | CT Scan Report ---
CT ANGIOGRAPHY OF THE NECK WITH CONTRAST CLINICAL HISTORY: Stroke. COMPARISON STUDY: No previous studies for comparison. Technique: CT angiography of the carotid and vertebral arteries was obtained using Real Matters 320 IV and 3D reconstruction on an independent workstation. NASCET criteria was utilized. Automated exposure c ontrol was utilized for the study. A dose lowering technique was utilized adhering to the principles of ALARA. Findings: There is mild stenosis at the origin of the right vertebral artery. There is moderate plaqu e within the proximal left internal carotid artery without stenosis. There is mild plaque within the proximal right internal carotid artery without stenosis. There is no evidence for dissection within t he major vessels of the neck. No vessel occlusion is noted. Lung apices are clear. There is no cervic al lymphadenopathy or cervical spine fracture. IMPRESSION: 1. Mild stenosis at the origin of the right vertebral artery. 2. Moderate plaque within the proximal bilateral internal carotid arteries, greater on the left. No s tenosis within the bilateral common carotid and cervical internal carotid arteries. Electronically signed by: Alexander Helm M.D. 01/22/2019 4:16 PM
[2019-01-22 17:12] LABS: Partial Thromboplastin Time 58.3 Seconds (21.0-31.0)
[2019-01-22] MEDS ORDERED: RIVAROXABAN 15 MG TAB PO SCH (18:30)
[2019-01-23 07:10] LABS: Basophils # (auto) 0.04 K/uL (0-0.2); Basophils % (auto) 0.6 %; Eosinophils # (auto) 0.36 K/uL (0-0.5); Eosinophils % (auto) 5.7 %; Hematocrit (blood only) 48.5 % (37-47); Hemoglobin 16.5 g/dL (12.0-16.0); Immature Granulocytes # (auto) 0.02 K/uL (0.00-0.02); Immature Granulocytes % (auto) 0.3 %; Lymphocytes # (auto) 1.63 K/uL (1.2-3.4); Lymphocytes % (auto) 25.9 %; Mean Corpuscular Hemoglobin 31.7 pg (25-34); Mean Corpuscular Volume 93.3 fL (80-100); Mean Platelet Volume 9.3 fL (7.4-10.4); Monocytes # (auto) 0.68 K/uL (0.11-0.59); Monocytes % (auto) 10.8 %; Neutrophils # (auto) 3.56 K/uL (1.4-6.5); Neutrophils % (auto) 56.7 %; Platelet Count 183 K/uL (130-400); RDW Coefficient of Variation 13.3 % (11.5-14.5); RDW Standard Deviation 45.2 fL (36.4-46.3); White Blood Count 6.29 K/uL (4.8-10.8)
[2019-01-23] MEDS: ASPIRIN 81 MG ECTAB PO SCH (07:27)
[2019-01-23] MEDS: cefUROXime axetil 500 MG TAB PO SCH (07:27)
[2019-01-23] MEDS: ATORVASTATIN 40 MG TAB PO SCH (07:27)
[2019-01-23 07:45] LABS: BUN Creatinine Ratio 14.2 (10-20); Creatinine Clr Calc Pharmacy 48.2 ml/min; Est GFR (African American) 62.1; Est GFR (Non-African American) 53.5; Potassium 4.1 mmol/L (3.5-5.1)
[2019-01-23] MEDS ORDERED: dilTIAZem HCL 120 MG CAPCR PO SCH (09:00)
--- NOTE | 2019-01-23 09:25 | Neurology Progress Note ---
Date of Service January 23, 2019 Assessment & Plan (1) Acute CVA (cerebrovascular accident): (2) Head trauma: (3) Altered behavior: (4) New onset atrial fibrillation: Patient was admitted 01-21 after a fall with some minor closed head trauma and possible concussion as noted by some behavioral alterations. There really were no other significant symptoms and the patient is back to baseline the morning or 01-22 with no focal neurologic findings, meningeal signs, or encephalopathy. She certainly does not have any speech or behavioral issues this morning and no focal findings. The patient has been in AFib/AFlutter with a rapid ventricular rate. It is unknown how long she has been in this but a week ago at her primary care physician's office her rhythm was described as normal. She has had some hypertension with has not been treated recently and her blood pressure was elevated on admission. Blood pressure is improved at 152/80 today. MRI of the brain (obtained because of her fall and abnormal behavior) showed a small right posterior parietal/occipital stroke in a wedge like fashion. This was reviewed and I do not believe it represents contusion. Certainly, the patient had no significant head trauma which would create a contusion or skull fracture. Patient has no discernible bruising or scalp lesions. The etiology of the stroke is not readily apparent, but could be embolic from the heart in lieu of the atrial flutter. The timing of this stroke is not readily apparent either, but is likely within a week. I cannot entirely exclude thrombotic stroke from hypertensive small vessel ischemic disease. The patient has not displayed any concussion type symptoms since admission. Recommendations: 1. Continue 81 mg aspirin tablet daily, to prevent small vessel ischemic disease 2. Continue Xarelto to prevent thrombus formation and cardiac emboli 3. Patient has a mildly elevated hemoglobin A1c at 6.0. Glucose could be addressed to bring this down under 6. 4. Control blood pressure as you are doing, aiming for a mean arterial blood pressure of approximately 100 (or 95-100) 5. Continue atorvastatin 40 mg daily. She not a high dose statin candidate however. 6. I have no further neurologic testing or treatment recommendations to make at this time. She does not need a a neurologic follow-up unless she has additional problems. Overall, I spent a total of 35 minutes with this case including review of records, direct evaluation the patient at bedside, discussion of the case with the patient at bedside, her daughter at bedside, and Dr. Brower including differential diagnosis and treatment options. Subjective No further symptoms or problems. Her daughter is present and there is no speech or mentation problems. Her behavior has been normal. Blood pressure is 152/80. CBC and Chem profile were largely unremarkable although glucose was 127. She is in AFib flutter with a relatively rapid ventricular rate. CT angiography of the neck showed mild right vertebral stenosis at the origin w ith some plaque in the left greater than right internal carotid arteries (without stenosis). Echocardiogram showed mild LVH and mildly dilated atria. The right ventricular pressure was elevated. Physical Exam Physical Exam: The patient is awake and alert, with normal speech and communication. Mood and affect are normal appropriate. Thought processes are intact conversation. There is no facial droop. Extraocular eye muscles are intact without nystagmus. Gait is narrow based and stable. Coordination of the arms is normal without tremor or ataxia. Motor strength is 5/5 in all major muscle groups of the arms and legs bilaterally, both proximally and distally. Results & Data Vital Signs (Past 12 Hours) Vital Signs Temp Pulse Resp BP Pulse Ox 01/23/19 08:21 37.1 C 113 H 22 152/80 H 97 01/23/19 03:45 36.4 C L 96 H 18 115/81 93 01/22/19 23:40 36.5 C 110 H 18 141/77 H 94 PG Care Time/CCT Total # of Minutes Spent Total Time Spent with Patient: Total time spent is greater than 50% in coordination of care (as documented) at patient's floor/unit and/or counseling patient:
[2019-01-23] MEDS ORDERED: STROKE PATIENT DISCHARGE STA (14:23)
--- NOTE | 2019-01-23 14:40 | Discharge Summary ---
Date of Service January 23, 2019 Admission HPI Per Admitting Provider Juany is a 78-year-old generally healthy female. Yesterday at work she states that she went to sit down in her chair but did not look behind her first which resulted in her falling on her bottom. She said that the force of the fall caused her head and neck to swing backward into another desk. She states that she did not lose consciousness as she remembers the fall and then her co-worker immediately asking if she hit her head. She does not endorse any changes in vision, weakness, lightheadedness, or change in speech at this time. However, she states that all day yesterday and continuing into today she feels like "she might get a heachache/neckache" and states that there is a vague sensation on her forehead and through her neck that she cannot define. After the fall her daughter and EMS workers reported that she was acting abnormally with frequent laughing and had a high-pitched voice but patient states that she is known to do 'weird things' and was simply embarrassed about her co-workers seeing her fall and the need to go to the hospital. Upon arrival at the hospital, the patient was found to have atrial fibrillation with rapid ventricular rhythm. Though her blood pressure was found to be elevated at an appointment with her PCP for a URI last week, she was in sinus rhythm at that time. She does not endorse any chest pain, palpitations, or the sensation of a racing heart in the last week. Today she states that she is resting comfortably and does not have any pain, changes in vision, difficulty speaking or swallowing, or weakness. Her daughter states that she is "100% back to normal" in terms of her personality, mental status, and behavior. Admission Exam Per Admitting Provider Cardiac: Tachycardic with irregularly irregular rhythm. No rubs, murmurs, or gallops. Neuro: Patient is alert and oriented x3. CN 2-12 intact. PERRLA. Vision 20/70 in both eyes. Strength +5 in upper and lower extremities and displays full range of motion. Patient's sensation of light and sharp touch intact in the upper and lower extremities. Bicep, tricep, brachioradialis, and patellar reflexes +2; achilles reflexes +1 bilaterally. Proprioception intact. Normal babinski bilaterally. Patient had difficulty putting left pointer finger to nose with eyes closed but ability intact on the right. Principal Diagnosis Acute CVA Atrial fibrillation/flutter with RVR Discharge Exam General: A&Ox3. NAD. Cooperative. HEENT: Atraumatic, normocephalic. Pulm: CTAB A&P. -wheezes, -rales, -rhonchi. Symmetrical chest rise. No increase work of breathing. No respiratory distress. Cardiac: Irregularly irregular, -mrg. Radial pulses intact and symmetrical. Abdominal: Nontender, nondistended, soft. BS present. Neurologic: Vision intact without field cuts. Hearing grossly intact. Extraocular movements intact without nystagmus. Pupils equal and reactive to light and accommodation. No facial asymmetry. Facial sensation intact. Facial strength intact without asymmetry. Tongue protrudes midline. Shoulder shrug normal 5/5. 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 Patellar DTR 2+ bilaterally. Sensation intact to soft touch bilaterally and without asymmetry in distal extremities. Discharge Data Allergies Allergy/AdvReac Type Severity Reaction Status Date / Time No Known Allergies Allergy Verified 01/21/19 19:52 Consultations 01/21/19 14:42 ED Decision to Admit Stat 01/21/19 18:38 Consult Case Management - Discharge Planning Routine 01/21/19 23:30 Consult Case Management - Discharge Planning Routine Consult Neurology Routine Ordered Studies 01/21/19 12:37 CT head/brain wo con Stat 01/21/19 18:38 MR brain wo con Stat 01/22/19 13:59 CT angio head w con Urgent CT angio neck with con Urgent Hospital Course (1) Acute CVA (cerebrovascular accident): Juany is a 78-year-old female with minimal past medical history who presented following a fall and was found to have new atrial flutter/fibrillation with RVR and a ischemic right parieto-occipital stroke on MRI. Acute right ischemic parieto-occipatal stroke Prior to admission Juany's daughter reported that she thought Juany speech was unusual with a high-pitched, and left her like quality which was not normal. Tone did not have any strength or sensory deficits on exam. CT head did not show any acute findings, MRI brain showed a small right occipital parietal stroke and chronic small vessel ischemic change of the periventricular and subcortical white matter. Neurology was consulted. CT-neck showed mild stenosis at the origin of the right vertebral artery and Moderate plaque within the proximal bilateral internal carotid arteries, greater on the left. No stenosis within the bilateral common carotid and cervical internal carotid arteries. Heparin was initiated on admission for a flutter/fibrillation as noted below. No significant valvular disease was seen on TTE and she was transitioned to rivaroxaban. Lipid panel showed a total cholesterol of 183 and HDL 43, patient was started on atorvastatin 40 mg and aspirin low-dose daily.She had no residual deficits at time of discharge. New onset atrial flutter/fib with RVR On admission Juany was tachycardic over the 130s alternating between atrial fibrillation and atrial flutter. She was started on a heparin drip on admission. Her rate responded well with good control on Cardizem drip overnight. She is converted to Cardizem short acting and observe for 24 hours before conversion to Cardizem 120 mg long-acting. She had good rate control in the 80s to 90s, with occasional increases to the 1-teens with ambulation. TTE did not show clinically significant valvular disease, and she was transitioned from heparin to rivaroxaban. Referral to cardiology for electro physiology testing and possible ablation was discussed, she preferred to pursue rate control and to follow-up as outpatient if needed. She is discharged to follow-up with her PCP for further titration and rate control. Prediabetes On admission Juany had a A1c of 6.0. She had no prior history of diabetes, and was Not on anti-glycemic treatment. Given her age and overall condition would have a liberalized A1c goal of 8.0, and metformin was not initiated. Prediabetes was discussed, it was recommended that she follow-up with her outpatient provider for continued follow-up. Total Time Total Time Spent Total Time Spent (In Minutes): 30 Discharge Plan Discharge Items Patient Disposition: Home - Self-Care Reason For Visit: NEW ONSET AFIB Discharge Diagnosis: New onset A. fib/a flutter Right parieto-occipital ischemic infarct (CVA) Activity: Resume your previous activity Non-emergency contact: Primary Care Provider Call non-emergency contact if: you have any medication questions, your symptoms worsen, your pain is not controlled, your pain is worsening, your pain is unusual for you, your pain is concerning for you and you have a fever Follow-up/Referrals: Chris Puente III, MD [Primary Care Provider] - Diet: Regular Addtl Attending Provider Instructions: You were seen in the hospital following a fall with concern from your daughter for altered mental status. You are found to have a small right-sided stroke without residual deficits. You were found to have an abnormal heart rhythm called atrial fibrillation/atrial flutter during admission which likely caused this event. Imaging of your carotid arteries (neck) did not show clinically significant blockage (stenosis). Imaging of your brain did not show any bleeding. You have been started on new medications as noted below. You have been started on a new heart medication, diltiazem. Please take diltiazem CR 120 mg once daily. This medication will help prevent your heart from going too fast. Your heart rate was well controlled at time of discharge, but you may need to have this medication adjusted further by her primary care provider. If you develop any lightheadedness, dizziness, feeling like you are going to pass out, passing out, palpitations, chest pain, shortness of breath, difficulty breathing, or other concerning symptoms please contact your primary care provider, or return to the emergency department if you are very concerned. You have been started on a blood thinner, rivaroxaban. Please take rivaroxaban 15 mg daily with food. This medication thins your blood and helps prevent strokes. While on blood thinners you will bleed more easily. If you have a small cut apply direct pressure for at least 10 minutes without checking to help stop the bleeding. If you have a cut that does not stop bleeding, or a larger cut with a concerning amount of bleeding, all for transport to the emergency room for evaluation immediately. If you develop other easy bruising, or signs of bleeding please contact your primary care physician or present to the emergency room if you are very concerned. You have been started on a cholesterol and heart medication, atorvastatin. Please take atorvastatin 40 mg by mouth daily. If you develop any abdominal pain, muscle aches, soreness, or other concerning symptoms please discuss this medication with your primary care physician. This medication is processed by the liver, and in rare circumstances may elevate liver enzymes. You have been provided with a prescription to have LFTs (blood work) performed in 2 weeks, please bring this to any lab and have the results forwarded to your primary care physician. Please start taking a low-dose aspirin (81 mg) once daily. If you develop any new or recurrent symptoms, including confusion, difficulty speaking, general or focal weakness, difficulty breathing, chest pain, chest pressure, breathing, passing out, nearly passing out, headache, leg swelling, vision change, or other concerning symptoms please contact your primary care provider or return to the emergency department if you are very concerned for evaluation. Thank you, it is been a pleasure caring for you during this admission. Pending Studies at Discharge: Yes Studies:: LFTs Stand-Alone Forms: Medications to Prevent Stroke, My [facility] Medications and DC Order Prescriptions: New Xarelto 15 mg Tablet 15 mg PO QDD Qty: 30 RF: 1 atorvastatin 40 mg Tablet 40 mg PO QAM Qty: 30 RF: 1 diltiazem HCl 120 mg Capsule,Extended Release 24hr 120 mg PO QAM Qty: 30 RF: 1 aspirin [Ecotrin Low Strength] 81 mg Tablet,Delayed Release (Dr/Ec) 81 mg PO QAM 30 Days Qty: 30 RF: 0 Discontinued cefuroxime axetil 500 mg tablet 500 mg PO BID RF: 0 Discharge Orders: Discharge Order (Routine); Ordered 01/23/19 Ordered By: Reagan Leigh/Other Patient Handouts: Atorvastatin Calcium Oral tablet, Diltiazem Hydrochloride Oral tablet, Aspirin Oral tablet, AFL/Afib, Stroke Sx, Stroke Ischemic, TIA, Stroke Taking Meds, Stress Heat Warning Signs, Stroke Prevent Healthy Lifestyle, Stroke Prevent Live W Atrial Fib Admission Data Admit Date/Time: 01/21/19 15:22 Attending Provider: Estela Brower Admit Provider: Rachel Menendez Primary Care Provider: Chris Puente III Other Providers: Rachel Menendez ; Kieran Dale Other Interventions: Discharge Summary Assessment (RN) Last Done: 01/23/19 14:33 DC Date/Time DO NOT enter until pt leaves facility: 01/23/19 15:36 Supervising Physician Co-Signing Physician Notes Resident Physician Supervision Note: I independently interviewed and examined the patient and verified the rosario history and physical, reviewed labs and image studies, discussed the case with the resident Dr. Baresel and agree with the findings and care plan. Resident Activity Tracking Resident Involvement: Resident Care Provided Care Provided: Adult Hospital Medicine
--- NOTE | 2019-01-23 15:19 | Pharmacy Report ---
Pharmacist Stroke Counseling - Date of Service January 23, 2019 - Scope: Pharmacy has been consulted to provide medication discharge counseling for this patient admitted with ischemic stroke as per the Pharmacist Discharge Counseling for Stroke Patients Protocol. - Medications on Discharge: New Rx's Medication Instructions Recorded aspirin [Ecotrin Low Strength] 81 mg PO QAM 30 Days #30 tab 01/23/19 atorvastatin 40 mg PO QAM #30 tab 01/23/19 diltiazem HCl 120 mg PO QAM #30 cap 01/23/19 rivaroxaban [Xarelto] 15 mg PO QDD #30 tab 01/23/19 - Action: The above medications, specifically ones for stroke treatment/prophylaxis, have been reviewed in detail with the patient and/or patient union contract representative(s) prior to discharge. This includes indication, common adverse reactions, drug interactions, and medication administration. Medication counseling has been employed using the teach-back method to ensure understanding. - Outcome: The patient and/or patient union contract representative(s) have demonstrated understanding of the medications. Please note, they are aware that the pharmacist will call them within 72 hours post-discharge to confirm that the appropriate medications are being taken and answer any further medication related questions the patient might have at that time. Contact information Individual to be contacted: Patient Relationship to patient (if applicable): n/a Phone number: [phone] Best time to call: Anytime, this is patient's cell phone, home number does not have answering machine, may need to leave message but she will call back Additional comments: Ms. Dahl was very pleasant to speak with today. She was not previously on any chronic medications prior to this event (was on antibiotic for UTI). Discussed new medication, side effects, etc. Patient expressed concern about medications and driving- wanted to know if any of them would cause her to get a "DUI" if tested while driving. Let her know that these medications would not be like some other classes of medications (controlled drugs- pain medications,sleep meds, etc.), but would exercise caution with driving until she knows/adjusts to new medications- particularly diltiazem. Patient also wanted to know if she could take them all at the same time. Patient is taking xarelto and did recommend taking it with dinner, however, she can take it in the morning as long as she is taking it with food if she will not remember to take it with dinner. She had no further questions at this time. Thank you for allowing pharmacy to be involved in the care of this patient. Please call [phone] or [phone] with any additional questions
--- NOTE | 2019-01-26 13:50 | Pharmacy Report ---
Pharmacist Post D/C Phone Note - Phone Note: Date of phone call: January 26, 2019. The patient and/or patient tax representative(s) were unable to be reached for a follow-up phone call within the 72 hour time frame. Discharge counseling pharmacist contact information has already been provided to the patient should questions arise. Thank you for allowing us to be involved in the care of this patient. - Home Medications: New Rx's Medication Instructions Recorded aspirin [Ecotrin Low Strength] 81 mg PO QAM 30 Days #30 tab 01/23/19 atorvastatin 40 mg PO QAM #30 tab 01/23/19 diltiazem HCl 120 mg PO QAM #30 cap 01/23/19 rivaroxaban [Xarelto] 15 mg PO QDD #30 tab 01/23/19
== END 2019-01-23 15:36 | disposition home or self-care (01) | DRG 65 ==
LOC: ED 12:12 → SUATTDRO 15:22 → 2S 15:22
DX: Z87.891 Personal history of nicotine dependence; I48.91 Unspecified atrial fibrillation; R47.89 Other speech disturbances; I48.92 Unspecified atrial flutter; Z82.3 Family history of stroke; I10 Essential (primary) hypertension; I63.40 Cerebral infarction due to embolism of unspecified cerebral artery; W18.39XA Other fall on same level, initial encounter; S09.90XA Unspecified injury of head, initial encounter; Y92.89 Other specified places as the place of occurrence of the external cause; R73.03 Prediabetes; J32.9 Chronic sinusitis, unspecified; R29.700 NIHSS score 0

== ENCOUNTER 2022-08-15 08:08 | Observation (INO) ==
--- NOTE | 2022-08-15 08:33 | Emergency Department Note ---
Impression & Plan Rectal bleeding, Anticoagulant long-term use, Atrial flutter with rapid ventricular response ED Provider Note NAME: JEANIE BERNARD AGE: 81 SEX: F : 1940 ARRIVES VIA: Walk-In INFORMANT: Patient, ED PROVIDER(S): Ruslan Martinez MD CHIEF COMPLAINT: Rectal bleeding MEDICAL DECISION MAKING: Patient presents due to concern for GI bleeding. IV was established blood work was obtained. EKG with a flutter and variable block. The patient's blood work does show a normal white count hemoglobin of 10 which is down from about 16 from 2019. Platelet count is unremarkable. Kidney function unremarkable. Very mild prerenal azotemia do not suspect upper GI bleeding. Patient did have obvious rectal bleeding on exam. COVID-negative. I did speak with the on-call hospitalist service given the patient's GI bleeding and anticoagulant use. Patient was admitted by Dr. George. Prior /Outside records reviewed: I did review the patient's cardiology note from Dr. Hassan. Known history of A-fib with RVR mitral regurg aortic stenosis history of CVA was on chronic anticoagulation for A-fib. Patient does take Xarelto. Differential diagnosis: Diverticulosis, AVM, coagulopathy, colitis, inflammatory bowel disease, malignan cy, Marily-Wang tear, esophagitis, peptic ulcer disease, variceal bleed, gastritis, epistaxis, fissure, hemorrhoids, as well as other pathologies. Diagnostics, as interpreted by me: ECG: EKG shows likely atrial flutter with variable block ventricular rate 102, normal QRS duration and axis. No ST elevations. Cardiac monitoring: An order was placed for continuous cardiac monitoring. The monitor shows a rate of 88 with regular rhythm. Patient was placed on pulse oximetry Medical decision rules: None Imaging studies: See below HPI: Patient presents due to concern for rectal bleeding that she initially noticed last evening which was occurring with flatulence and then this morning she noted with a bowel movement she ended gross blood with associated clots. The patient does take Xarelto. The patient last took it yesterday morning. The patient had called the nursing hotline this morning was referred here and advised not to take any additional medications this morning. Patient also does take a baby aspirin typically. The patient does not take any other NSAIDs and no alcohol or tobacco use. The patient denies any abdominal pain nausea vomiting. No prior history of any upper GI bleeding or ulcers. PAST MEDICAL HISTORY: See Below PAST SURGICAL HISTORY: See Below SOCIAL HISTORY: See Below HOME MEDICATIONS: See Below ALLERGIES: See Below VITALS: See Below PHYSICAL EXAMINATION: GENERAL: NAD, non-toxic. EYE EXAM: Normal conjunctiva. PERRL, no anisocoria and EOM's grossly intact w/o pain. Oropharynx: Edentulous. NECK: Supple, no nuchal rigidity, no adenopathy, non-tender. No signs of meningismus. FROM of the neck with good chin to chest and neck extension. No stridor. LUNGS: Clear to auscultation. Normal chest wall mechanics. HEART: NSR, no MRG. ABDOMEN: Abdomen soft, non-tender, no masses, no rebound or guarding. BACK: No CVA TTP. : No obvious hemorrhoids, obvious dried blood. No active bleeding no obvious fissures. SKIN: No rashes and no bruising. UPPER EXTREMITIES: Upper extremities are grossly normal. LOWER EXTREMITIES: Grossly normal, no edema. NEURO EXAM: A&O x3, cranial nerves II-XII grossly intact, normal speech, moves all 4 extremities. Past Med/Surg History Medical History Acute pharyngitis Acute sinusitis Acute upper respiratory infection Aortic stenosis Atopic dermatitis Cellulitis Disorder of urinary tract Earache Elevated blood pressure reading without diagnosis of hypertension Encounter for screening for malignant neoplasm of colon Foreign body in eye Hx of breast cancer Hypercholesterolemia Influenza B Mitral regurgitation Murmur Neck pain No significant past medical history Pain in foot Pain in joint of left shoulder Plantar warts Surgical History History of cataract surgery S/P mastectomy Family History Father , in his 70s of liver cancer. Irregular heart beat Liver cancer Mother , age 69 with a stroke. 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 [employer] Feels Safe at Home: Yes Safety Concerns: Feels Safe At This Time Assistive Devices: None Allergies Allergies Allergy/AdvReac Type Severity Reaction Status Date / Time No Known Drug Allergies Allergy Verified 12/25/21 14:26 Home Meds Previous Rx's Medication Instructions Recorded rivaroxaban 20 mg tablet (Xarelto) 20 mg PO DAILY #90 tabs 09/20/21 diltiazem HCl 240 mg 240 mg PO DAILY #90 caps 01/23/22 capsule,extended release 24 hr aspirin 81 mg tablet,delayed 81 mg PO DAILY #100 tabs 03/27/22 release (Adult Low Dose Aspirin) atorvastatin 40 mg tablet 40 mg PO QAM stroke/cholesterol 07/30/22 #30 tabs Results & Data (ED) Vital Signs Vital Signs - 24 hr 08/15/22 08:13 08/15/22 08:57 08/15/22 08:57 Temperature 36.5 C Temperature Source Temporal Artery Scan Pulse Rate 91 H Pulse Rate [Apical] 103 H Respiratory Rate 16 18 Respiratory Effort / Characteristics Non-Labored Non-Labored Respiratory Depth Normal Normal Respiratory Pattern Regular Blood Pressure 106/70 Blood Pressure [Left Arm] 138/86 Blood Pressure Mean 82 Blood Pressure Mean [Left Arm] 103 Pulse Oximetry 98 99 98 Oxygen Delivery Method Room Air Room Air Room Air Sepsis Recent Fever Within 48 Hours No Sepsis New/Unexplained Change in Mental Status No Sepsis Action Taken by Nursing No Action Required 08/15/22 09:00 Temperature Temperature Source Pulse Rate 106 H Pulse Rate [Apical] Respiratory Rate Respiratory Effort / Characteristics Respiratory Depth Respiratory Pattern Blood Pressure Blood Pressure [Left Arm] Blood Pressure Mean Blood Pressure Mean [Left Arm] Pulse Oximetry Oxygen Delivery Method Sepsis Recent Fever Within 48 Hours Sepsis New/Unexplained Change in Mental Status Sepsis Action Taken by Half-Way Medications Current Medication List: was personally reviewed by me Laboratory Data Attestation: I reviewed the patient's lab results. 08/15/22 08:45 08/15/22 08:45 Lab Results 08/15/22 08/15/22 08/15/22 Range/Units 08:45 08:45 08:45 WBC 7.20 (4.8-10.8) K/ul RBC 4.02 L (4.20-5.40) M/uL Hgb 10.1 L (12.0-16.0) g/dl Hct 32.7 L (37.0-47.0) % MCV 81.3 (80.0-100.0) fL MCH 25.1 (25.0-34.0) pg MCHC 30.9 L (32.0-36.0) g/dL RDW Std Deviation 48.6 H (36.4-46.3) fL RDW Coeff of Kaylee 16.3 H (11.5-14.5) % Plt Count 270 (130-400) K/uL MPV 9.5 (9.4-12.4) fL Immature Gran % (Auto) 0.4 % Neut % (Auto) 81.7 % Lymph % (Auto) 10.7 % Beaver % (Auto) 5.1 % Eos % (Auto) 1.1 % Baso % (Auto) 1.0 % Neut # (Auto) 5.88 (1.40-6.50) K/uL Lymph # (Auto) 0.77 L (1.2-3.4) K/uL Beaver # (Auto) 0.37 (0.11-0.59) K/uL Eos # (Auto) 0.08 (0-0.50) K/uL Baso # (Auto) 0.07 (0-0.2) K/uL Immature Gran # (Auto) 0.03 (0.01-0.20) K/uL PT 12.5 H (9.0-12.0) Seconds INR 1.2 H (0.9-1.1) APTT 24.8 (21.0-31.0) Seconds PTT Ratio 0.9 Sodium 140 (136-145) mmol/L Potassium 4.4 (3.5-5.1) mmol/L Chloride 109 H (98-107) mmol/L Carbon Dioxide 24 (21-32) mmol/L Anion Gap 7 (3-11) BUN 21 (6-23) mg/dl Creatinine 0.96 (0.6-1.2) mg/dl Est Cr Clr Drug Dosing Not Reportable Est GFR ( Amer) 63.8 ml/min Est GFR (Non-Af Amer) 55.1 ml/min BUN/Creatinine Ratio 21.9 H (10-20) Glucose 154 H (70-99(Fasting)) mg/dl Calcium 8.6 (8.6-10.3) mg/dl Total Bilirubin 0.5 (0.2-1.0) mg/dl AST 18 (13-39) U/L ALT 13 (7-52) U/L Alkaline Phosphatase 83 (34-104) U/L Total Protein 6.4 (6.0-8.3) gm/dl Albumin 3.9 (3.4-5.0) gm/dl Globulin 2.5 (2.5-4.0) gm/dl Albumin/Globulin Ratio 1.6 (0.9-2) POC Stool Occult Blood (Negative) SARS-CoV-2, RNA, NAAT (NEGATIVE) Blood Type Antibody Screen 08/15/22 08/15/22 08/15/22 Range/Units 09:07 09:19 09:24 WBC (4.8-10.8) K/ul RBC (4.20-5.40) M/uL Hgb (12.0-16.0) g/dl Hct (37.0-47.0) % MCV (80.0-100.0) fL MCH (25.0-34.0) pg MCHC (32.0-36.0) g/dL RDW Std Deviation (36.4-46.3) fL RDW Coeff of Kaylee (11.5-14.5) % Plt Count (130-400) K/uL MPV (9.4-12.4) fL Immature Gran % (Auto) % Neut % (Auto) % Lymph % (Auto) % Beaver % (Auto) % Eos % (Auto) % Baso % (Auto) % Neut # (Auto) (1.40-6.50) K/uL Lymph # (Auto) (1.2-3.4) K/uL Beaver # (Auto) (0.11-0.59) K/uL Eos # (Auto) (0-0.50) K/uL Baso # (Auto) (0-0.2) K/uL Immature Gran # (Auto) (0.01-0.20) K/uL PT (9.0-12.0) Seconds INR (0.9-1.1) APTT (21.0-31.0) Seconds PTT Ratio Sodium (136-145) mmol/L Potassium (3.5-5.1) mmol/L Chloride (98-107) mmol/L Carbon Dioxide (21-32) mmol/L Anion Gap (3-11) BUN (6-23) mg/dl Creatinine (0.6-1.2) mg/dl Est Cr Clr Drug Dosing Est GFR ( Amer) ml/min Est GFR (Non-Af Amer) ml/min BUN/Creatinine Ratio (10-20) Glucose (70-99(Fasting)) mg/dl Calcium (8.6-10.3) mg/dl Total Bilirubin (0.2-1.0) mg/dl AST (13-39) U/L ALT (7-52) U/L Alkaline Phosphatase (34-104) U/L Total Protein (6.0-8.3) gm/dl Albumin (3.4-5.0) gm/dl Globulin (2.5-4.0) gm/dl Albumin/Globulin Ratio (0.9-2) POC Stool Occult Blood Positive A (Negative) SARS-CoV-2, RNA, NAAT NEGATIVE (NEGATIVE) Blood Type A Positive Antibody Screen NEGATIVE Administered Medications Atorvastatin Calcium (Atorvastatin 40 Mg Tab) 40 mg PO QAM [facility] Stop: 09/14/22 13:21 Last Admin: 08/15/22 13:47 Dose: 40 mg Documented By: JUNIOR Discontinued Medications Diltiazem HCl (Diltiazem Hcl 240 Mg Capcr) 240 mg PO ONCE STA Stop: 08/15/22 10:51 Last Admin: 08/15/22 11:08 Dose: 240 mg Documented By: JUNIOR Ioversol (Optiray 350 100ml) 88 ml IV ONCE ONE Stop: 08/15/22 15:45 Last Admin: 08/15/22 15:44 Dose: 88 ml Documented By: KSF Discharge Plan Visit Data Chief Complaint: Rectal Bleed Stated Complaint: RECTAL BLEEDING ED Provider: Ruslan Martinez Discharge Problem: Rectal bleeding, Anticoagulant long-term use, Atrial flutter with rapid ventricular response Patient Disposition: Admitted As Inpatient Discharge Instructions Interventions: ED Discharge Assessment Last Done: 08/15/22 13:22
[2022-08-15 09:09] LABS: Basophils # (auto) 0.07 K/uL (0-0.2); Eosinophils # (auto) 0.08 K/uL (0-0.50); Eosinophils % (auto) 1.1 %; Hematocrit (blood only) 32.7 % (37.0-47.0); Hemoglobin 10.1 g/dl (12.0-16.0); Immature Granulocytes # (auto) 0.03 K/uL (0.01-0.20); Immature Granulocytes % (auto) 0.4 %; Lymphocytes # (auto) 0.77 K/uL (1.2-3.4); Lymphocytes % (auto) 10.7 %; Mean Corpuscular Hemoglobin 25.1 pg (25.0-34.0); Mean Corpuscular Hgb Conc 30.9 g/dL (32.0-36.0); Mean Corpuscular Volume 81.3 fL (80.0-100.0); Mean Platelet Volume 9.5 fL (9.4-12.4); Monocytes # (auto) 0.37 K/uL (0.11-0.59); Monocytes % (auto) 5.1 %; Neutrophils # (auto) 5.88 K/uL (1.40-6.50); Neutrophils % (auto) 81.7 %; Platelet Count 270 K/uL (130-400); RDW Coefficient of Variation 16.3 % (11.5-14.5); RDW Standard Deviation 48.6 fL (36.4-46.3); Red Blood Count 4.02 M/uL (4.20-5.40)
[2022-08-15 09:20] LABS: Alanine Aminotransferase 13 U/L (7-52); Albumin Globulin Ratio 1.6 (0.9-2); Albumin Level 3.9 gm/dl (3.4-5.0); Alkaline Phosphatase 83 U/L (34-104); Anion Gap 7 (3-11); Aspartate Aminotransferase 18 U/L (13-39); BUN Creatinine Ratio 21.9 (10-20); Bilirubin,Total 0.5 mg/dl (0.2-1.0); Blood Urea Nitrogen 21 mg/dl (6-23); Calcium 8.6 mg/dl (8.6-10.3); Carbon Dioxide 24 mmol/L (21-32); Chloride 109 mmol/L (98-107); Est GFR (African American) 63.8 ml/min; Est GFR (Non-African American) 55.1 ml/min; Globulin 2.5 gm/dl (2.5-4.0); Glucose 154 mg/dl (70-99(Fasting)); Potassium 4.4 mmol/L (3.5-5.1); Sodium 140 mmol/L (136-145); Total Protein 6.4 gm/dl (6.0-8.3)
[2022-08-15 09:36] LABS: INR 1.2 (0.9-1.1); Partial Thromboplastin Ratio 0.9; Partial Thromboplastin Time 24.8 Seconds (21.0-31.0); Prothrombin Time 12.5 Seconds (9.0-12.0)
--- NOTE | 2022-08-15 10:19 | History & Physical Report ---
Date of Service August 15, 2022 Assessment & Plan (1) Rectal bleeding: Plan: -Admit to med/tele -The patient is currently afebrile, hemodynamically stable and stable on RA -Started to develop BRB per the rectum and clots in her stool yesterday evening, has continued today -No previous hx of GI bleed, does have a previous hx of breast cancer and no previous colonoscopy or EGD -Hgb currently stable at 10.0, obtained blood consent on admission and will obtain type/screen -Continue to monitor q6h CBC, transfuse as needed -Will consult GI and keep on clears for now -Hold Xarelto and Aspirin at this time -Continue to monitor on tele, will ensure she has two large bore IV's -BL SCD's for DVT PPX -AM BMP, PT/INR (2) Atrial fibrillation with RVR: Plan: -HR noted to be in the low 100's today -She is asymptomatic and has not had her am dose of Diltiazem yet -Will companion caregiver her PO diltiazem STAT and continue to monitor on tele (3) Hypercholesterolemia: Plan: -Continue statin (4) Hx of stroke without residual deficits: Plan: -Hold aspirin and xarelto with GI bleed for now Plan The patient was discussed with Dr. Huang at the time of the admission History of Present Illness Chief Complaint: rectal bleed Primary Care Provider: ROMÁN PCP Juany is an 81 year old female with a PMH significant for afib and previous CVA on Xarelto, aortic stenosis, mitral regurgitation, and hyperlipidemia who presented to the [facility] ED on 08/15/22 with a chief complaint of rectal bleeding. In the ED the patient was noted to be tachycardic with HR in the low 100's, otherwise vitals were stable. Labs were significant for a Hgb of 10 (last was 16.5 as of 2018), RDW of 16.3, stable platelets, lymphocyte count of 0.77, glucose of 154, Guaiac positive stool, and covid 19 negative. The patient did not receive medical treatment prior to admission. At the time of the exam the patient was sitting in bed in no acute distress with her Daughter sitting bedside, history was obtained from both. She states that she had been in her normal state of health until yesterday evening when she noticed blood in the toilet after a small bowel movement. She states that since then she has had approximately 3 more episodes of bright red blood and/or clots in her stool or the toilet bowl, with the last episode occurring this am prior to arrival to the ED. She states that the BM this am contained the most blood and clots yet. She denies a previous history of GI bleeding and last took her aspirin and Xarelto yesterday. She has a personal history of breast cancer S/P right mastectomy and chemotherapy approximately 50 years ago. She does note possible GI cancer in her family but cannot remember which family member had it. She states that when hernando arrived to the ED check-in desk she felt lightheaded/dizzy but this has resolved since resting in bed. She denies recent fever, chills, chest pain, SOB, abd pain, nausea, vomiting, dysuria, hematuria, melena, LE swelling, and recent trauma. She wishes to be a Full Code and for her daughter to make medical decisions for her if she could not make them herself. Please refer to Dr. Huang's attestation for any changes to the treatment plan. Allergies Allergy/AdvReac Type Severity Reaction Status Date / Time No Known Drug Allergies Allergy Verified 12/25/21 14:26 Home Medications Medication Instructions Recorded Confirmed Type rivaroxaban 20 mg tablet (Xarelto) 20 mg PO DAILY #90 tabs 09/20/21 08/15/22 Rx diltiazem HCl 240 mg 240 mg PO DAILY #90 caps 01/23/22 08/15/22 Rx capsule,extended release 24 hr aspirin 81 mg tablet,delayed 81 mg PO DAILY #100 tabs 03/27/22 08/15/22 Rx release (Adult Low Dose Aspirin) atorvastatin 40 mg tablet 40 mg PO QAM stroke/cholesterol 07/30/22 08/15/22 Rx #30 tabs Past Med/Surg History Medical History (Updated 08/15/22 @ 11:06 by Diego Goodson PA-C) Acute pharyngitis Acute sinusitis Acute upper respiratory infection Aortic stenosis Atopic dermatitis Cellulitis Disorder of urinary tract Earache Elevated blood pressure reading without diagnosis of hypertension Encounter for screening for malignant neoplasm of colon Foreign body in eye Hx of breast cancer Hypercholesterolemia Influenza B Mitral regurgitation Murmur Neck pain No significant past medical history Pain in foot Pain in joint of left shoulder Plantar warts Surgical History History of cataract surgery S/P mastectomy Family History Father , in his 70s of liver cancer. Irregular heart beat Liver cancer Mother , age 69 with a stroke. 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[email or web address] Feels Safe at Home: Yes Assistive Devices: Denture - Upper, Denture - Lower and Glasses Physical Exam Physical Exam: Physical Exam: General: In no acute distress, stated age, well-nourished, good hygiene HEENT: Normocephalic, atraumatic, no scleral icterus, pupils around round, symmetrical, and reactive to light, moist mucus membranes, trachea midline, no thyromegaly Chest/Pulm: No respiratory distress, symmetrical chest expansion, clear breath sounds throughout Cardiac: irregular rate and rhythm, no murmurs noted Abdomen: Negative for ascites and bruising, normoactive bowel sounds, soft, non-tender to palpation throughout Musculoskeletal: Symmetrical and without signs of acute trauma, upper and lower extremities with full ROM, no atrophy, spasticity, or flaccidity Extremities: Radial, dorsalis pedis, and posterior tibial pulses are intact and symmetrical, no edema noted in the BL LE's Skin: Warm, dry, no rashes , lesions, or scars noted Neuro: Alert and oriented to person, place, month, year, and president, no focal defects, CN II-XII tested and intact, finger to nose test negative, no tremors noted Psych: No acute distress, calm and cooperative during the exam Results & Data Results & Data Vital Signs (Past 12 Hours) Vital Signs Temp Pulse Pulse Resp BP BP Pulse Ox 08/15/22 09:00 106 H 08/15/22 08:57 98 08/15/22 08:57 103 H 18 138/86 99 08/15/22 08:13 36.5 C 91 H 16 106/70 98 O2 Del Method 08/15/22 09:00 08/15/22 08:57 Room Air 08/15/22 08:57 Room Air 08/15/22 08:13 Room Air Laboratory Results Abnormal lab results 08/15/22 08/15/22 08/15/22 Range/Units 08:45 08:45 08:45 RBC 4.02 L (4.20-5.40) M/uL Hgb 10.1 L (12.0-16.0) g/dl Hct 32.7 L (37.0-47.0) % MCHC 30.9 L (32.0-36.0) g/dL RDW Std Deviation 48.6 H (36.4-46.3) fL RDW Coeff of Kaylee 16.3 H (11.5-14.5) % Lymph # (Auto) 0.77 L (1.2-3.4) K/uL PT 12.5 H (9.0-12.0) Seconds INR 1.2 H (0.9-1.1) Chloride 109 H (98-107) mmol/L BUN/Creatinine Ratio 21.9 H (10-20) Glucose 154 H (70-99(Fasting)) mg/dl POC Stool Occult Blood (Negative) 08/15/22 Range/Units 09:24 RBC (4.20-5.40) M/uL Hgb (12.0-16.0) g/dl Hct (37.0-47.0) % MCHC (32.0-36.0) g/dL RDW Std Deviation (36.4-46.3) fL RDW Coeff of Kaylee (11.5-14.5) % Lymph # (Auto) (1.2-3.4) K/uL PT (9.0-12.0) Seconds INR (0.9-1.1) Chloride (98-107) mmol/L BUN/Creatinine Ratio (10-20) Glucose (70-99(Fasting)) mg/dl POC Stool Occult Blood Positive A (Negative) ECG Additional Comments: Atrial flutter with variable A-V block Abnormal ECG When compared with ECG of 23-JAN-2019 07:00, Atrial flutter has replaced Atrial fibrillation Code Status & VTE Plan Code Status Full code VTE Prophylaxis Plan VTE Prophylaxis will be ordered: Yes Supervising Physician Co-Signing Physician Notes I personally saw and examined the patient. I verified all rosario points and agree with Diego Goodson PA-C with the following exceptions and/or additions: 81 year old female presents to the ER with bright red blood per rectum and dark clots passing since last night. No abdominal pain, nausea or vomiting. O/E HS increased rate, irregular rhythm, Chest CTAB, Abdo SNT A/P Suspected lower GI bleed - Stop Xarelto and aspirin, no prior colonoscopy, if develops abdominal pain recommend CT but will defer on admission given lack of abdominal pain, nausea or vomiting. Consult gastroenterology for consideration of colonoscopy as inpatient due to need to go back on Xarelto given continued atrial flutter and prior stroke. Trend Hgb, transfuse Hgb > 8. PG Care Time/CCT Total # of Minutes Spent Total Time Spent with Patient: Total time spent is greater than 50% in coordination of care (as documented) at patient's floor/unit and/or counseling patient: Coding [place] [address] INT INP/OBS CARE 2/55MIN Patient Type Established Medical Decision Making Moderate Complexity Diagnoses Rectal bleeding K62.5 Atrial fibrillation with RVR I48.91 Hypercholesterolemia E78.00 Hx of stroke without residual deficits Z86.73
[2022-08-15] MEDS ORDERED: dilTIAZem HCL 240 MG CAPCR PO STA (10:50)
[2022-08-15] MEDS ORDERED: SODIUM CHLORIDE 0.9% 250 ML IV PRN (10:51)
--- NOTE | 2022-08-15 12:37 | Gastrointestinal Consultation ---
Date of Consultation August 15, 2022 Assessment & Plan (1) Rectal bleeding: Discussed case with Dr. Trimble who advised on plan. - check CT abd/pelvis to further evaluate. - continue to hold xarelto. - further recommendations to follow. Supervising Physician Co-Signing Physician Notes Agree with TIFFANY Ruiz as above Abd: Soft, NT, ND, +BS Reviewed CT scan with radiology, essentially normal from GI standpoint with some fecal burden Clear liquids Bowel prep tonight Colonoscopy tomorrow History of Present Illness Reason for Consultation: Rectal bleeding on xarelto Requesting Physician: Diego ALLEN History of Present Illness Patient is an 81 year old female with a PMH significant for A fib and previous CVA on Xarelto(last dose AM of 08/14), aortic stenosis, mitral regurgitation, and hyperlipidemia who presented to the [facility] ED on 08/15/22 with a chief complaint of rectal bleeding. Rectal bleeding started last evening. She admits she was passing blood even without a bowel movement. She tells me she would feel like she needed to move her bowels but would pass very little stool, just heavy blood and clots. She denies any nausea, vomiting, abdominal pain or rectal pain. Prior to this she tells me her bowels were regular and she would move her bowels daily and never any brbpr or melena. she tells me that she has had one further bowel movement that was blood since being here. she tells me she has never had a colonoscopy or EGD. she does tell me she believes both her mother and her father had history of CRC but she is not certain. Allergies Allergy/AdvReac Type Severity Reaction Status Date / Time No Known Drug Allergies Allergy Verified 12/25/21 14:26 Home Medications Medication Instructions Recorded Confirmed Type rivaroxaban 20 mg tablet (Xarelto) 20 mg PO DAILY #90 tabs 09/20/21 08/15/22 Rx diltiazem HCl 240 mg 240 mg PO DAILY #90 caps 01/23/22 08/15/22 Rx capsule,extended release 24 hr aspirin 81 mg tablet,delayed 81 mg PO DAILY #100 tabs 03/27/22 08/15/22 Rx release (Adult Low Dose Aspirin) atorvastatin 40 mg tablet 40 mg PO QAM stroke/cholesterol 07/30/22 08/15/22 Rx #30 tabs Patient History Medical History Acute pharyngitis Acute sinusitis Acute upper respiratory infection Aortic stenosis Atopic dermatitis Cellulitis Disorder of urinary tract Earache Elevated blood pressure reading without diagnosis of hypertension Encounter for screening for malignant neoplasm of colon Foreign body in eye Hx of breast cancer Hypercholesterolemia Influenza B Mitral regurgitation Murmur Neck pain No significant past medical history Pain in foot Pain in joint of left shoulder Plantar warts Surgical History History of cataract surgery S/P mastectomy Family History Father , in his 70s of liver cancer. Irregular heart beat Liver cancer Mother , age 69 with a stroke. 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 Safe at Home: Yes Safety Concerns: Feels Safe At This Time Assistive Devices: None Review of Systems Review of Systems: All systems reviewed & are unremarkable except as noted in HPI & below Physical Exam Constitutional: WD/WN, vitals as above Respiratory: normal respiratory effort, lungs clear to auscultation Cardiovascular: RRR, no murmur, no edema Gastrointestinal (Abdomen): normal bowel sounds, soft, nontender, no hepatosplenomegaly Skin: no rashes, warm and dry Psychiatric: Orientation: alert and oriented x 3 Affect: euthymic affect Results & Data Vital Signs (Past 12 Hours) Vital Signs Temp Pulse Pulse Resp BP BP Pulse Ox 08/15/22 12:27 113 H 18 116/71 99 08/15/22 09:00 106 H 08/15/22 10:42 106 H 18 140/87 99 08/15/22 08:57 98 08/15/22 08:57 103 H 18 138/86 99 08/15/22 08:13 97.7 F 91 H 16 106/70 98 O2 Del Method 08/15/22 12:27 Room Air 08/15/22 09:00 08/15/22 10:42 Room Air 08/15/22 08:57 Room Air 08/15/22 08:57 Room Air 08/15/22 08:13 Room Air PG Care Time/CCT Total # of Minutes Spent Total Time Spent with Patient: Total time spent is greater than 50% in coordination of care (as documented) at patient's floor/unit and/or counseling patient: Coding Level of Care Code 66777 INT INP/OBS CARE 140MIN Diagnoses Rectal bleeding K62.5
--- NOTE | 2022-08-15 13:22 | Electrocardiogram Report ---
Test Reason : Blood Pressure : / mmHG Vent. Rate : 102 BPM Atrial Rate : 340 BPM P-R Int : 000 ms QRS Dur : 074 ms QT Int : 350 ms P-R-T Axes : 000 005 000 degrees QTc Int : 456 ms Atrial fibrillation Abnormal ECG Confirmed by Demetrius Douglass ([id number]) on 08/15/2022 1:22:03 PM Referred By: REFERRED SELF Confirmed By:Rommel Douglass
[2022-08-15] MEDS: ATORVASTATIN 40 MG TAB PO SCH (13:47)
[2022-08-15 15:12] LABS: Basophils # (auto) 0.05 K/uL (0-0.2); Basophils % (auto) 0.7 %; Eosinophils # (auto) 0.04 K/uL (0-0.50); Eosinophils % (auto) 0.6 %; Hematocrit (blood only) 29.7 % (37.0-47.0); Hemoglobin 9.4 g/dl (12.0-16.0); Immature Granulocytes # (auto) 0.01 K/uL (0.01-0.20); Immature Granulocytes % (auto) 0.1 %; Lymphocytes # (auto) 1.18 K/uL (1.2-3.4); Lymphocytes % (auto) 17.6 %; Mean Corpuscular Hemoglobin 25.5 pg (25.0-34.0); Mean Corpuscular Hgb Conc 31.6 g/dL (32.0-36.0); Mean Corpuscular Volume 80.5 fL (80.0-100.0); Mean Platelet Volume 9.5 fL (9.4-12.4); Monocytes # (auto) 0.43 K/uL (0.11-0.59); Monocytes % (auto) 6.4 %; Neutrophils # (auto) 4.99 K/uL (1.40-6.50); Neutrophils % (auto) 74.6 %; Platelet Count 245 K/uL (130-400); RDW Coefficient of Variation 16.3 % (11.5-14.5); RDW Standard Deviation 47.7 fL (36.4-46.3); Red Blood Count 3.69 M/uL (4.20-5.40)
[2022-08-15] MEDS ORDERED: OPTIRAY 350 100ml IV ONE (15:44)
--- NOTE | 2022-08-15 16:28 | CT Scan Report ---
ABDOMEN AND PELVIS CT WITH IV AND ORAL CONTRAST CT DOSE: 445.66 mGy.cm HISTORY: GI Bleeding TECHNIQUE: Multiaxial CT images of the abdomen and pelvis were performed following the use of intrave nous and oral contrast. A dose lowering technique was utilized adhering to the principles of ALARA. COMPARISON STUDY: None. FINDINGS: The lung bases are essentially clear. No pneumoperitoneum. No pneumatosis. L2 and L3 verteb ral body hemangiomas are noted. No suspicious osseous lesions. There is a small hiatus hernia. Scatte red hypodense lesions are seen throughout the liver with the largest in the left hepatic lobe measuri ng 2 cm. These favor cysts. The gallbladder, spleen, and adrenal glands are unremarkable. There is a 1.9 cm right renal cyst. Mild left cortical renal scarring is noted. No ureteral stones. No hydroneph rosis. The main portal vein is patent. Moderate to severe calcified plaque within the abdominal aorta . There is a mildly ectatic abdominal aorta measuring up to 2.5 cm in diameter. There are few subcent imeter hypodense lesions within the body of the pancreas. 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 The bladder is unremarkable. The uterus and bilateral adnexa are within normal limits. No pelvic free fluid. There is a focal penetrating ulcer seen within the mid abdominal aorta. Moderate fecal retention. No bowel wall thickening or obstruction. Normal appendix. IMPRESSION: 1. No bowel wall thickening or obstruction. 2. Normal appendix. 3. No hydronephrosis. 4. Moderate fecal retention. 5. Additional findings as described above. ACT 112: Negative or not required by law. Electronically signed by: Barrera Bass M.D. 08/15/2022 4:26 PM
[2022-08-15] MEDS ORDERED: bisacodyL 5 MG TABEC PO ONE (16:41)
[2022-08-15] MEDS ORDERED: POLYETHYLENE (MIRALAX) 17 GM PACK PO ONE (22:00)
[2022-08-15 22:17] LABS: Hematocrit (blood only) 28.6 % (37.0-47.0); Hemoglobin 9.1 g/dl (12.0-16.0); Mean Corpuscular Hemoglobin 25.3 pg (25.0-34.0); Mean Corpuscular Hgb Conc 31.8 g/dL (32.0-36.0); Mean Corpuscular Volume 79.7 fL (80.0-100.0); Mean Platelet Volume 9.9 fL (9.4-12.4); Platelet Count 247 K/uL (130-400); RDW Coefficient of Variation 16.2 % (11.5-14.5); RDW Standard Deviation 46.5 fL (36.4-46.3); Red Blood Count 3.59 M/uL (4.20-5.40); White Blood Count 6.35 K/ul (4.8-10.8)
[2022-08-15] MEDS ORDERED: ONDANSETRON INJ 2 MG/ML 2 ML VIAL IV PRN (22:34)
[2022-08-16 03:33] LABS: Hematocrit (blood only) 27.2 % (37.0-47.0); Hemoglobin 8.7 g/dl (12.0-16.0); Mean Corpuscular Hemoglobin 25.7 pg (25.0-34.0); Mean Corpuscular Volume 80.2 fL (80.0-100.0); Mean Platelet Volume 9.5 fL (9.4-12.4); Platelet Count 237 K/uL (130-400); RDW Coefficient of Variation 16.3 % (11.5-14.5); RDW Standard Deviation 47.9 fL (36.4-46.3); Red Blood Count 3.39 M/uL (4.20-5.40); White Blood Count 7.09 K/ul (4.8-10.8)
[2022-08-16 03:49] LABS: INR 1.1 (0.9-1.1); Prothrombin Time 11.8 Seconds (9.0-12.0)
[2022-08-16 03:51] LABS: Calcium 8.3 mg/dl (8.6-10.3); Potassium 3.9 mmol/L (3.5-5.1)
[2022-08-16 03:57] LABS: BUN Creatinine Ratio 17.6 (10-20); Creatinine Clr Calc Pharmacy 49.5 ml/min; Est GFR (African American) 68.1 ml/min; Est GFR (Non-African American) 58.8 ml/min
[2022-08-16] MEDS ORDERED: POLYETHYLENE (MIRALAX) 17 GM PACK ONE (04:54)
[2022-08-16] MEDS ORDERED: POLYETHYLENE (MIRALAX) 17 GM PACK PO ONE (06:00)
[2022-08-16 07:34] LABS: Hematocrit (blood only) 27.4 % (37.0-47.0); Hemoglobin 8.8 g/dl (12.0-16.0); Mean Corpuscular Hemoglobin 25.8 pg (25.0-34.0); Mean Corpuscular Hgb Conc 32.1 g/dL (32.0-36.0); Mean Corpuscular Volume 80.4 fL (80.0-100.0); Mean Platelet Volume 9.6 fL (9.4-12.4); Platelet Count 249 K/uL (130-400); RDW Coefficient of Variation 16.3 % (11.5-14.5); RDW Standard Deviation 47.3 fL (36.4-46.3); Red Blood Count 3.41 M/uL (4.20-5.40)
[2022-08-16] MEDS ORDERED: PNEUMOCOCCAL Polysaccharide Vaccine 25mcg/0.5mL vial/Syr IM ONE (09:00)
--- NOTE | 2022-08-16 09:42 | History & Physical Bridge Note ---
Date of Service August 16, 2022 History & Physical Bridge Note I have examined the patient, reviewed the History & Physical and in the interval since the performance of the History & Physical I have noted the following changes of clinical significance: no changes noted. Patient just finished prep about an half hour ago. she feels like stools are clearing. no further bleeding since starting prep other than a few spots on toilet tissue with wiping but nothing since yesterday. denies sob or chest pain. hgb today 8.8. will plan to proceed with colonoscopy today. Supervising Physician Co-Signing Physician Notes Agree with TIFFANY Ruiz as above Abd: Soft, NT, ND, +BS Continue current therapy and supportive care Proceed with colonoscopy now.
[2022-08-16] MEDS: ATORVASTATIN 40 MG TAB PO SCH (10:06)
[2022-08-16] MEDS: dilTIAZem HCL 240 MG CAPCR PO SCH (10:06)
--- NOTE | 2022-08-16 10:21 | Anesthesiology Consultation ---
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 Atilio Trimble DO Height/Weight Height: 5 ft 6 in Weight: 74.1 kg Allergies Allergy/AdvReac Type Severity Reaction Status Date / Time No Known Drug Allergies Allergy Verified 12/25/21 14:26 Medications Home Medications Medication Instructions Recorded Confirmed Last Taken rivaroxaban 20 mg tablet (Xarelto) 20 mg PO DAILY #90 tabs 09/20/21 08/15/22 08/14/22 diltiazem HCl 240 mg 240 mg PO DAILY #90 caps 01/23/22 08/15/22 08/15/22 capsule,extended release 24 hr aspirin 81 mg tablet,delayed 81 mg PO DAILY #100 tabs 03/27/22 08/15/22 Unknown release (Adult Low Dose Aspirin) atorvastatin 40 mg tablet 40 mg PO QAM stroke/cholesterol 07/30/22 08/15/2207/28 #30 tabs Active Medications Generic Name Dose Route Start Last Admin Trade Name Freq PRN Reason Stop Dose Admin Atorvastatin Calcium 40 mg 08/15/22 13:22 08/16/22 10:06 Atorvastatin 40 Mg Tab PO 09/14/22 13:21 40 mg QAM BECKIE Administration Diltiazem HCl 240 mg 08/16/22 09:00 08/16/22 10:06 Diltiazem Hcl 240 Mg Capcr PO 09/15/22 08:59 240 mg DAILY BECKIE Administration Ondansetron HCl 4 mg 08/15/22 22:34 08/15/22 23:02 Ondansetron Inj 2 Mg/Ml 2 Ml Vial IV 08/16/22 22:33 4 mg Q6H PRN Administration Nausea And Vomiting Past Medical History Medical History Acute pharyngitis Acute sinusitis Acute upper respiratory infection Aortic stenosis Atopic dermatitis Cellulitis Disorder of urinary tract Earache Elevated blood pressure reading without diagnosis of hypertension Encounter for screening for malignant neoplasm of colon Foreign body in eye Hx of breast cancer Hypercholesterolemia Influenza B Mitral regurgitation Murmur Neck pain No significant past medical history Pain in foot Pain in joint of left shoulder Plantar warts Past Family History Family History Father , in his 70s of liver cancer. Irregular heart beat Liver cancer Mother , age 69 with a stroke. Stroke Diabetes Breast cancer Other Family history non-contributory Past Surgical History Surgical History History of cataract surgery S/P mastectomy Social History Smoking Status: Never smoker Hx Alcohol Use: Yes Alcohol type: beer alcohol intake frequency: a few times a month Hx Substance Use: No Physical Exam Vital Signs Last Vital Signs Temp 97.7 F 08/16/22 07:27 Pulse 92 H 08/16/22 07:27 Resp 14 08/16/22 07:27 BP 114/66 08/16/22 07:27 Pulse Ox 99 08/16/22 07:27 O2 Del Method Room Air 08/16/22 07:27 Testing Laboratory Results 08/16/22 06:58 08/16/22 03:08 PT 11.8 Seconds (9.0-12.0) 08/16/22 03:08 INR 1.1 (0.9-1.1) 08/16/22 03:08 APTT 24.8 Seconds (21.0-31.0) 08/15/22 08:45 Blood Type A Positive 08/15/22 09:07 Antibody Screen NEGATIVE 08/15/22 09:07 Electrocardiogram Date: 08/15/22 Findings: + AFIB @ (102 bpm) Echocardiogram Date: 12/19/21 LV size, thickness and function are normal LA is mildly dilated Mild Mild to mod MR Mild to mod TR RVSP is elevated at 30-40mmHg
[2022-08-16 12:56] LABS: Hematocrit (blood only) 29.2 % (37.0-47.0); Hemoglobin 9.1 g/dl (12.0-16.0)
--- NOTE | 2022-08-16 13:10 | Hospitalist Progress Note ---
Date of Service August 16, 2022 Assessment & Plan (1) Rectal bleeding: Plan: Suspected diverticular bleed based on presentation and history. Xarelto is on hold. Appreciate gastroenterology consultation and recommendations. Colonoscopy later today, August 16. Aortoenteric fistula has been ruled out by radiology. (2) Atrial fibrillation with RVR: Plan: Telemetry. Xarelto is on hold. Continue current medical management (3) Hypercholesterolemia: Plan: Stable Continue statin (4) Hx of stroke without residual deficits: Plan: Hold aspirin and xarelto with GI bleed for now (5) Acute blood loss anemia: Plan: Mild at this point. No indication for blood transfusion as of yet. Serial labs ordered Plan Anticipate eventual discharge back to her home. Admission and Anticipated Discharge Date Admission Date: August 15, 2022 Subjective Alert and oriented. No acute distress. Daughter is at the bedside. GI consult appreciated. Colonoscopy later today. Xarelto was on hold. She has mild acute blood loss anemia but no need for blood transfusion at this point. Serial labs are ordered. Dr. Trimble states he specifically discussed the possibility of aortoenteric fistula with radiology and this has been ruled out Review of Systems Review of Systems: Constitutional-no fever or chills ENT-no blurred vision, no double vision, no epistaxis, no sore throat Respiratory-no cough, no wheezing, no shortness of breath Cardiac-no palpitations, no chest pain, no syncope GI-no nausea, vomiting, diarrhea, melena. She did develop recent hematochezia -no urinary retention, no urinary incontinence, no dysuria, no hematuria Musculoskeletal-no joint pain, no muscle tenderness Skin-no bruising, no rashes, no pruritus Neuro-no isolated weakness, no paresthesia, no weakness Psych-no depression, no anxiety Physical Exam Physical Exam: General-alert and oriented x3, no fevers, no chills HEENT-head atraumatic and normocephalic, pupils equal and reactive to light, extraocular muscles intact Neck-no lymphadenopathy or thyromegaly, trachea midline Chest-clear to auscultation percussion. No rales wheezing or rhonchi Cardiac-regular rate and rhythm, normal S1 and S2 Abdomen-normal bowel sounds, nontender, no hepatosplenomegaly Extremities-no cyanosis, clubbing, or edema Neuro-cranial nerves II through XII intact, motor and sensory function within normal limits, strength symmetrical , no focal deficits Psych-normal affect, normal mood Results & Data Results & Data Vital Signs (Past 12 Hours) Vital Signs Temp Pulse Pulse Resp BP Pulse Ox O2 Del Method 08/16/22 11:41 36.5 C 101 H 16 109/71 95 Room Air 08/16/22 07:27 36.5 C 92 H 14 114/66 99 Room Air 08/16/22 03:38 104 H 08/16/22 02:46 36.7 C 93 H 18 101/64 97 Room Air Laboratory Results 08/16/22 12:23 08/16/22 03:08 PG Care Time/CCT Total # of Minutes Spent Total Time Spent with Patient: Total time spent is greater than 50% in coordination of care (as documented) at patient's floor/unit and/or counseling patient: Coding Level of Care Code 61849 SUB INP/OBS CARE 3/50MIN Diagnoses Rectal bleeding K62.5 Atrial fibrillation with RVR I48.91 Hypercholesterolemia E78.00 Hx of stroke without residual deficits Z86.73 Acute blood loss anemia D62
[2022-08-16] MEDS ORDERED: PHENYLEPHRINE 100MCG/ML 5ML SYR ONE (15:01)
[2022-08-16] MEDS ORDERED: PROPOFOL IV EMULSION 10 MG/ML 20 ML VIAL IV ONE (15:01)
--- NOTE | 2022-08-16 15:19 | Anesthesiology Progress Note ---
Date of Service August 16, 2022 Anesthesia Post Procedure Vital Signs Vital Signs: Temp Pulse Pulse Resp BP Pulse Ox O2 Del Method 08/16/22 15:14 96 H 14 114/56 L 98 Room Air 08/16/22 13:40 97.0 F L 102 H 18 134/86 97 Room Air 08/16/22 11:41 97.7 F 101 H 16 109/71 95 Room Air 08/16/22 07:27 97.7 F 92 H 14 114/66 99 Room Air 08/16/22 03:38 104 H 08/16/22 02:46 98.1 F 93 H 18 101/64 97 Room Air 08/15/22 22:02 97.9 F 103 H 16 126/76 99 Room Air 08/15/22 19:20 98.4 F 83 18 109/70 98 Room Air Transfer of Care Handoff Completed per policy Notes Mental Status: alert / awake / arousable and participated in evaluation Patient Amnestic to Procedure: Yes Nausea / Vomiting: adequately controlled Pain: adequately controlled Airway Patency, RR, SpO2: stable & adequate BP & HR: stable & adequate Hydration State: stable & adequate Anesthetic Complications: no major complications apparent and Pt Satisfied with anesthetic care
--- NOTE | 2022-08-16 15:29 | GI REPORT ---
Patient Name: Juany Dahl Procedure Date: 08/16/2022 2:36 PM Date of : 1940 Admit Type: Inpatient Age: 81 Gender: Female Attending MD: Ricardo Trimble DO, Procedure: Colonoscopy Providers: Ricardo Trimble DO Referring MD: Dajuan Brooks Indications: Rectal bleeding, Acute post hemorrhagic anemia Medicines: Monitored Anesthesia Care Complications: No immediate complications. Estimated Blood Loss: Estimated blood loss: none. Procedure: Pre-Anesthesia Assessment: - Prior to the procedure, a History and Physical was performed, and patient medications and allergies were reviewed. The patient's tolerance of previous anesthesia was also reviewed. The risks and benefits of the procedure and the sedation options and risks were discussed with the patient. All questions were answered, and informed consent was obtained. Prior Anticoagulants: The patient has taken Xarelto (rivaroxaban), last dose was 2 days prior to procedure. ASA Grade Assessment: III - A patient with severe systemic disease. After reviewing the risks and benefits, the patient was deemed in satisfactory condition to undergo the procedure. After I obtained informed consent, the scope was passed under direct vision. Throughout the procedure, the patient's blood pressure, pulse, and oxygen saturations were monitored continuously. The Colonoscope was introduced through the anus and advanced to the terminal ileum. The colonoscopy was performed without difficulty. The patient tolerated the procedure well. The quality of the bowel preparation was good. The terminal ileum, ileocecal valve, appendiceal orifice, and rectum were photographed. Findings: The perianal and digital rectal examinations were normal. A 16 mm polyp was found in the hepatic flexure. The polyp was sessile. The polyp was removed with a piecemeal technique using a hot snare. Resection and retrieval were complete. To prevent bleeding after the polypectomy, three hemostatic clips were successfully placed (MR conditional). Clip crm specialist: [employer]. There was no bleeding at the end of the procedure. Multiple small-mouthed diverticula were found in the sigmoid colon. A 20 mm polyp was found in the rectum. The polyp was sessile. The polyp was removed with a piecemeal technique using a hot snare. Resection and retrieval were complete. Non-bleeding internal hemorrhoids were found during retroflexion. The hemorrhoids were small. Impression: - One 16 mm polyp at the hepatic flexure, removed piecemeal using a hot snare. Resected and retrieved. Clips (MR conditional) were placed. Clip crm specialist: [employer]. - Diverticulosis in the sigmoid colon. - One 20 mm polyp in the rectum, removed piecemeal using a hot snare. Resected and retrieved. - Non-bleeding internal hemorrhoids. Recommendation: - [facility]. - Advance diet as tolerated. - Resume Xarelto (rivaroxaban) at prior dose in 3 days. - Repeat colonoscopy for surveillance based on pathology results. Ricardo Trimble, DO 08/16/2022 3:28:37 PM This report has been signed electronically. Note Initiated On: 08/16/2022 2:36 PM Number of Addenda: 0 I attest to the content of the Intraoperative Record and orders documented therein, exceptions below {[id number]}
[2022-08-16 18:14] LABS: Hematocrit (blood only) 26.1 % (37.0-47.0); Hemoglobin 8.2 g/dl (12.0-16.0)
[2022-08-17 08:06] LABS: Basophils # (auto) 0.05 K/uL (0-0.2); Basophils % (auto) 0.8 %; Eosinophils # (auto) 0.19 K/uL (0-0.50); Eosinophils % (auto) 3.2 %; Hematocrit (blood only) 25.6 % (37.0-47.0); Hemoglobin 8.3 g/dl (12.0-16.0); Immature Granulocytes # (auto) 0.02 K/uL (0.01-0.20); Immature Granulocytes % (auto) 0.3 %; Mean Corpuscular Hemoglobin 25.5 pg (25.0-34.0); Mean Corpuscular Hgb Conc 32.4 g/dL (32.0-36.0); Mean Corpuscular Volume 78.8 fL (80.0-100.0); Mean Platelet Volume 9.4 fL (9.4-12.4); Monocytes # (auto) 0.63 K/uL (0.11-0.59); Monocytes % (auto) 10.7 %; Platelet Count 213 K/uL (130-400); RDW Coefficient of Variation 16.2 % (11.5-14.5); RDW Standard Deviation 46.7 fL (36.4-46.3); Red Blood Count 3.25 M/uL (4.20-5.40); White Blood Count 5.89 K/ul (4.8-10.8)
[2022-08-17 08:31] LABS: BUN Creatinine Ratio 14.1 (10-20); Calcium 8.3 mg/dl (8.6-10.3); Creatinine Clr Calc Pharmacy 58.7 ml/min; Est GFR (African American) 82.1 ml/min; Est GFR (Non-African American) 70.8 ml/min
[2022-08-17] MEDS: ATORVASTATIN 40 MG TAB PO SCH (09:26)
[2022-08-17] MEDS: dilTIAZem HCL 240 MG CAPCR PO SCH (09:26)
--- NOTE | 2022-08-17 09:37 | Communication Note ---
Date of Service: August 17, 2022 Colonoscopy 08/16/22 16mm colon polyp in hepatic flexure (clips placed), diverticulosis, 20mm colon polyp in rectum, non bleeding internal hemorrhoids. path pending. No further bleeding after procedure. hgb stable today at 8.3. Previously this was 8.2. she feels well, tolerating liquids and asking to advance her diet. Discussed with Dr. Trimble, okay to advance diet as tolerated. Upon discharge, would have her follow up in GI clinic in one week. I scheduled follow up for her on 08/24/22 at 1020 AM.
--- NOTE | 2022-08-17 11:22 | Discharge Summary ---
Date of Service August 17, 2022 Admission HPI Per Admitting Provider Juany is an 81 year old female with a PMH significant for afib and previous CVA on Xarelto, aortic stenosis, mitral regurgitation, and hyperlipidemia who presented to the [facility] ED on 08/15/22 with a chief complaint of rectal bleeding. In the ED the patient was noted to be tachycardic with HR in the low 100's, otherwise vitals were stable. Labs were significant for a Hgb of 10 (last was 16.5 as of 2018), RDW of 16.3, stable platelets, lymphocyte count of 0.77, glucose of 154, Guaiac positive stool, and covid 19 negative. The patient did not receive medical treatment prior to admission. At the time of the exam the patient was sitting in bed in no acute distress with her Daughter sitting bedside, history was obtained from both. She states that she had been in her normal state of health until yesterday evening when she noticed blood in the toilet after a small bowel movement. She states that since then she has had approximately 3 more episodes of bright red blood and/or clots in her stool or the toilet bowl, with the last episode occurring this am prior to arrival to the ED. She states that the BM this am contained the most blood and clots yet. She denies a previous history of GI bleeding and last took her aspirin and Xarelto yesterday. She has a personal history of breast cancer S/P right mastectomy and chemotherapy approximately 50 years ago. She does note possible GI cancer in her family but cannot remember which family member had it. She states that when arrived to the ED check-in desk she felt lightheaded/dizzy but this has resolved since resting in bed. She denies recent fever, chills, chest pain, SOB, abd pain, nausea, vomiting, dysuria, hematuria, melena, LE swelling, and recent trauma. She wishes to be a Full Code and for her daughter to make medical decisions for her if she could not make them herself. Please refer to Dr. Huang's attestation for any changes to the treatment plan. Principal Diagnosis Lower GI bleeding, suspected diverticular etiology of bleed, acute blood loss anemia, benign-appearing colon polyps Discharge Exam General-alert and oriented x3, no fevers, no chills HEENT-head atraumatic and normocephalic, pupils equal and reactive to light, extraocular muscles intact Neck-no lymphadenopathy or thyromegaly, trachea midline Chest-clear to auscultation percussion. No rales wheezing or rhonchi Cardiac-regular rate and rhythm, normal S1 and S2 Abdomen-normal bowel sounds, nontender, no hepatosplenomegaly Extremities-no cyanosis, clubbing, or edema Neuro-cranial nerves II through XII intact, motor and sensory function within normal limits, strength symmetrical , no focal deficits Psych-normal affect, normal mood Discharge Data Allergies Allergy/AdvReac Type Severity Reaction Status Date / Time No Known Drug Allergies Allergy Verified 12/25/21 14:26 Consultations 08/15/22 10:31 ED Decision to Admit Stat 08/15/22 10:54 Consult Gastroenterology Routine Procedures Performed Operation Date: 08/16/22 16:30 Actual Procedures p Colonoscopy Polypectomy - Ricardo Yi Case, DO Ordered Studies 08/15/22 13:19 CT abd pelvis oral and IV con Urgent Hospital Course (1) Rectal bleeding: Suspected diverticular bleed based on presentation and history. Xarelto is on hold. Will restart Xarelto 3 days after discharge. Appreciate gastroenterology consultation and recommendations. Colonoscopy completed on August 16 revealed diverticulosis with no evidence of active bleeding. Several small polyps were removed.. Aortoenteric fistula has been ruled out by radiology. (2) Atrial fibrillation with RVR: Telemetry. Xarelto is on hold. Will restart Xarelto in 3 days continue current medical management (3) Hypercholesterolemia: Stable Continue statin (4) Hx of stroke without residual deficits: Holding aspirin and xarelto while hospitalized. Will restart aspirin at discharge and restart Xarelto in 3 days (5) Acute blood loss anemia: Mild at this point. No indication for blood transfusion as of yet. Serial labs ordered Plan Stable for discharge home todayAugust 17 Total Time Total Time Spent Total Time Spent (In Minutes): 40 minutes Discharge Plan Discharge Items Patient Disposition: Home - Self-Care Reason For Visit: RECTAL BLEEDING Discharge Diagnosis: Lower GI bleed of suspected diverticular etiology, benign-appearing colon polyps, acute blood loss anemia Activity: Resume your previous activity Non-emergency contact: Primary Care Provider Call non-emergency contact if: you have any medication questions and your symptoms worsen Follow-up/Referrals: PCP,NO [Primary Care Provider] - Diet: Regular and Heart Healthy Addtl Attending Provider Instructions: May restart Xarelto on Saturday. All other medications remain the same Pending Studies at Discharge: Yes Studies:: Pathology report from benign-appearing small colon polyps removed during colonoscopy Stand-Alone Forms: My [facility], Smoking Cessation Medications and DC Order Prescriptions: Continued Xarelto 20 mg tablet 20 mg PO DAILY Qty: 90 3RF diltiazem HCl 240 mg capsule,extended release 24hr 240 mg PO DAILY Qty: 90 3RF aspirin [Adult Low Dose Aspirin] 81 mg tablet,delayed release (DR/EC) 81 mg PO DAILY Qty: 100 3RF atorvastatin 40 mg tablet 40 mg PO QAM Qty: 30 11RF Discharge Orders: Discharge Order (Routine); Ordered 08/17/22 Ordered By: Dajuan Resendiz Admission Data Admit Date/Time: 08/15/22 10:20 Attending Provider: Dajuan Resendiz Admit Provider: Francisco Javier Huang Primary Care Provider: PCP,NO Other Providers: Francisco Javier Huang ; Ricardo Trimble Coding Level of Care Code 22163 INP/OBS DISCH >30 MIN Diagnoses Rectal bleeding K62.5 Atrial fibrillation with RVR I48.91 Hypercholesterolemia E78.00 Hx of stroke without residual deficits Z86.73 Acute blood loss anemia D62
== END 2022-08-17 14:10 | disposition home or self-care (01) ==
LOC: ED 08:08 → EDINP 08:08 → SUATTDRO 10:20 → 2N 13:22
DX: I48.91 Unspecified atrial fibrillation; Z86.73 Personal history of transient ischemic attack (TIA), and cerebral infarction without residual deficits; K64.8 Other hemorrhoids; Z79.899 Other long term (current) drug therapy; K62.5 Hemorrhage of anus and rectum; K57.30 Diverticulosis of large intestine without perforation or abscess without bleeding; Z79.01 Long term (current) use of anticoagulants; E78.00 Pure hypercholesterolemia, unspecified; K62.1 Rectal polyp; Z79.82 Long term (current) use of aspirin; D62 Acute posthemorrhagic anemia